=== PATIENT | male | born 1935 | race Caucasian/White ===

== ENCOUNTER 2017-09-25 09:24 | Inpatient (IN) | payer BC, OTHER ==
[2017-09-25 09:32] VITALS: BMI 27.2
[2017-09-25 10:27] LABS: BASO % 0.7 % (0-2.0); EOS % 7.8 % (0-4.5); HEMATOCRIT 37.9 % (35.4-49); HEMOGLOBIN 12.6 GM/dL (11.7-16.9); LYMPH % 15.1 % (8-40); MCH 30.2 pg (25.7-33.7); MCHC 33.3 g/dl (32.0-35.9); MEAN CELL VOLUME 90.7 fl (80-96); NEUT % 68.4 % (42.8-82.8); PLATELET COUNT 196 K/MM3 (134-434); RBC 4.18 M/mm3 (4.00-5.60); WHITE BLOOD COUNT 5.9 K/mm3 (4.0-10.0)
[2017-09-25 10:44] LABS: INR 1.09 (0.82-1.09); PROTHROMBIN TIME (PATIENT) 12.3 SEC (9.7-13.0)
[2017-09-25 10:54] LABS: ALBUMIN 3.8 g/dl (3.4-5.0); ANION GAP 6 (8-16); BLOOD UREA NITROGEN 24 mg/dL (7-18); CALCIUM 8.5 mg/dL (8.5-10.1); CHLORIDE 106 mmol/L (98-107); CO2 27 mmol/L (21-32); CREATININE 1.3 mg/dL (0.7-1.3); GLUCOSE,RANDOM 130 mg/dL (74-106); POTASSIUM 5.2 mmol/L (3.5-5.1); SGOT/AST 13 U/L (15-37); SGPT/ALT 8 U/L (12-78); SODIUM 139 mmol/L (136-145)
[2017-09-25 10:58] LABS: ALK PHOS 86 U/L (45-117); BILIRUBIN,TOTAL 1.3 mg/dL (0.2-1.0); TOT PROT 6.9 g/dl (6.4-8.2)
[2017-09-25] MEDS: DEXTROSE 5%-NORMAL SALINE 1,000 ML IV SCH (11:19)
[2017-09-25] MEDS ORDERED: ASPIRIN 81 MG CHEWABLE TABLETS PO ONE (11:39)
--- NOTE | 2017-09-25 11:50 | PDOC ---
History of Present Illness - General History Source: Patient Exam Limitations: No Limitations <Ga Araujo - Last Filed: 09/25/17 12:18> - History of Present Illness Initial Comments: 09/25/17 12:30 The patient is a 81 year old male with a significant PMH of parkinsons disease , diabetes, hypertension, and TIA presenting with difficulty moving the fingers on his left hand today. The patients is at bedside and states he was sitting on the porch yesterday while leaning to his left side. The patient woke up this morning with left hand weakness. The patient also reports an unwitnessed fall one hour prior to arrival. The patient states he was standing when he suddenly fell. The patient denies any lightheadedness, dizziness, chest pain or palpitations prior to falling. Patient denies any confusion after the event. The patient denies any pain. The patient denies chest pain, shortness of breath, headache and dizziness. Denies fever, chills, nausea, vomit, diarrhea and constipation. Denies dysuria, frequency, urgency and hematuria. Allergies: NKA Past surgical history: None reported. Social history: No reported alcohol, drug, or cigarette use. PCP: Dr. Todd <Mere Payton - Last Filed: 09/25/17 12:37> - General Chief Complaint: CVA/TIA Stated Complaint: LT ARM [id number] Time Seen by Provider: 09/25/17 10:30 Past History - Past Medical History CVA: Yes COPD: No Diabetes: Yes HTN: Yes Other medical history: parkinsons - Suicide/Smoking/Psychosocial Hx Smoking History: Former smoker Have you smoked in the past 12 months: No Information on smoking cessation initiated: No <Ga Araujo - Last Filed: 09/25/17 12:18> <Mere Payton - Last Filed: 09/25/17 12:37> - Past Medical History Allergies/Adverse Reactions: Allergies Allergy/AdvReac Type Severity Reaction Status Date / Time No Known Allergies Allergy Verified 09/25/17 09:27 Home Medications: Ambulatory Orders Atorvastatin Ca [Lipitor] 40 mg PO HS 09/25/17 Carbidopa/Levodopa [Carbidopa-Levo ER 50-200 Tab] 1 each PO TID 09/25/17 Docusate Sodium 300 mg PO HS 09/25/17 Metformin HCl [Glucophage] 500 mg PO BID 09/25/17 Metoprolol Succinate [Toprol Xl] 100 mg PO DAILY 09/25/17 Rasagiline Mesylate 0.5 mg PO DAILY 09/25/17 Tamsulosin HCl 0.4 mg PO DAILY 09/25/17 Review of Systems - Review of Systems Able to Perform ROS?: Yes Comments:: 09/25/17 12:36 ADULT ROS GENERAL/CONSTITUTIONAL: No fever or chills. No weakness. HEAD, EYES, EARS, NOSE AND THROAT: No change in vision. No ear pain or discharge. No sore throat. CARDIOVASCULAR: No chest pain or shortness of breath. RESPIRATORY: No cough, wheezing, or hemoptysis. GASTROINTESTINAL: No nausea, vomiting, diarrhea or constipation. (+) lower abdominal pain. GENITOURINARY: No dysuria, frequency, or change in urination. MUSCULOSKELETAL: No joint or muscle swelling or pain. No neck or back pain. SKIN: No rash NEUROLOGIC: (+) Difficulty moving fingers on left hand. No headache, vertigo, loss of consciousness, or change in strength/sensation. ENDOCRINE: No increased thirst. No abnormal weight change. HEMATOLOGIC/LYMPHATIC: No anemia, easy bleeding, or history of blood clots. ALLERGIC/IMMUNOLOGIC: No hives or skin allergy. <Mere Payton - Last Filed: 09/25/17 12:37> *Physical Exam - Vital Signs Last Vital Signs Temp Pulse Resp BP Pulse Ox 97.6 F 71 19 141/87 100 09/25/17 09:27 09/25/17 09:27 09/25/17 09:09/25/17 09:27 09/25/17 10:25 <Ga Araujo - Last Filed: 09/25/17 12:18> - Vital Signs Last Vital Signs Temp Pulse Resp BP Pulse Ox 97.6 F 71 19 141/87 100 09/25/17 09:27 09/25/17 09:27 09/25/17 09:27 09/25/17 09:27 09/25/17 10:25 - Physical Exam Comments: 09/25/17 12:36 ADULT EXAM GENERAL: Awake, alert, and fully oriented, in no acute distress HEAD: No signs of trauma EYES: PERRLA, EOMI, sclera anicteric, conjunctiva clear ENT: Auricles normal inspection, hearing grossly normal, nares patent, oropharynx clear without exudates. Moist mucosa NECK: Normal ROM, supple, no lymphadenopathy, JVD, or masses LUNGS: Breath sounds equal, chela ar to auscultation bilaterally. No wheezes, and no crackles HEART: Regular rate and rhythm, normal S1 and S2, no murmurs, rubs or gallops ABDOMEN: Soft, nontender, normoactive bowel sounds. No guarding, no rebound. No masses EXTREMITIES: 2+ radial pulse on the left. No edema. No clubbing or cyanosis. No cords, erythema, or tenderness NEUROLOGICAL: Sensation intact in the median, radial, and ulnar nerves. (+) Unable to extend the wrist, digits, and thumb. (+) Weakness to the radial, ulnar, and median nerves. Full sensation to the left elbow. Other extremities intact in strength and sensation. No pronator drift. Cranial nerves II through XII grossly intact. Normal speech. SKIN: Warm, Dry, normal turgor, no rashes or lesions noted. <Mere Payton - Last Filed: 09/25/17 12:37> NIH Stroke Scale - Last Known Well Date/Time & Onset Date Last Known Well: 09/24/17 - Initial Evaluation Level of consciousness: Alert Ask patient the month and their age: Answers both correctly Ask patient to open & close eyes; make fist and let go: Obeys both correctly Best gaze (horizontal eye movement): Normal Visual field testing: No visual field loss Facial paresis (Show teeth/raise eyebrows/close eyes tight): Normal symmetrical movement Motor Function: Left Arm: Normal Motor Function: Right Arm: Normal (extends arm 90 (or 45) degrees for 10 seconds without drift Motor Function: Left Leg: Normal (extends leg 30 degrees for 5 seconds without drift) Motor Function: Right Leg: Normal (extends leg 30 degrees for 5 seconds without drift) Limb Ataxia: No ataxia Sensory(Use pinprick test arms,legs,trunk,face/side to side): Normal Best language (Describe picture, name items, read sentences): No Aphasia Dysarthria (read several words): Normal articulation Extinction and Inattention: No abnormality - Total Score NIH Stroke Scale Score: 0 <Ga Araujo - Last Filed: 09/25/17 12:18> tPA Exclusion Checklist 0-3hr - Time Elapsed Date last known well: 09/25/17 - Thrombolytic Therapy Candidate Is the patient eligible for Thrombolytic Therapy?: No - Ineligibility reason(s) Reasons No tPA given: Outside of window - delayed arrival <Ga Araujo - Last Filed: 09/25/17 12:18> Heart Score/ECG Review #1 ECG reviewed & interpreted by me at: 11:15 09/25/17 12:07 NSR 65 with 1st degree AV block, left axis deviation, LVH, TWI III, avF, QTC 411 msec <Ga Araujo - Last Filed: 09/25/17 12:18> Critical Care Time/MDM Note - Medical Decision Making Note: 09/25/17 12:19 A portion of this note was documented by scribe services under my direction. I have reviewed the details of the note, within reason, and agree with the documentation with the following case summary and management plan written by me. Patient treated in the ED. Nursing notes are reviewed and incorporated into the medical decision-making. Vital signs reviewed. Peripheral IV access obtained by the nurse, laboratory studies are drawn and sent, reviewed and interpreted by myself. Vital Signs Temp Pulse Resp BP Pulse Ox 97.6 F 71 19 141/87 100 09/25/17 09:27 09/25/17 09:27 09/25/17 09:27 09/25/17 09:27 09/25/17 10:25 81-year-old male with history of Parkinson's disease, diabetes presents with left hand weakness since yesterday. The patient had fell asleep on his left side and woke up in the afternoon with weakness of the left hand. He was unable to extend his left wrist or his digits. Denies slurring of speech or dysphagia. Denies any numbness. Stated the symptoms persisted until today and was concerned for stroke so came into the ER. Denies chest pain or shortness of breath. The left wrist could certainly be Monday night palsy. However, given his history of stroke and age and history of hypertension diabetes, only to rule out stroke. CAT scan of the head demonstrates a partial lucency in the right internal capsule potentially infarction. It is of age indeterminate. Aspirin was ordered and given. Case was discussed with neurologist, Dr. Lott, who will see the patient. CBC, BMP 09/25/17 10:05 09/25/17 10:05 CMP Sodium 139 mmol/L (136-145) 09/25/17 10:05 Potassium 5.2 mmol/L (3.5-5.1) H 09/25/17 10:05 Chloride 106 mmol/L (98-107) 09/25/17 10:05 Carbon Dioxide 27 mmol/L (21-32) 09/25/17 10:05 Anion Gap 6 (8-16) L 09/25/17 10:05 BUN 24 mg/dL (7-18) H 09/25/17 10:05 Creatinine 1.3 mg/dL (0.7-1.3) 09/25/17 10:05 Creat Clearance w eGFR 53.25 (>60) 09/25/17 10:05 Random Glucose 130 mg/dL (74-106) H 09/25/17 10:05 Calcium 8.5 mg/dL (8.5-10.1) 09/25/17 10:05 Total Bilirubin 1.3 mg/dL (0.2-1.0) H 09/25/17 10:05 AST 13 U/L (15-37) L 09/25/17 10:05 ALT 8 U/L (12-78) L 09/25/17 10:05 Alkaline Phosphatase 86 U/L (45-117) 09/25/17 10:05 Creatine Kinase 139 IU/L (39-308) 09/25/17 10:05 Troponin I 0.02 ng/ml (0.00-0.05) 09/25/17 10:05 Total Protein 6.9 g/dl (6.4-8.2) 09/25/17 10:05 Albumin 3.8 g/dl (3.4-5.0) 09/25/17 10:05 Findings concerning for stroke. Case discussed with Dr. Gonzáles who accepted the patient to the stroke service. Case discussed in detail with admitting physician including history, physical exam and ancillary studies. Admitting physician has assumed care for the patient, will follow all pending diagnostics and will complete the evaluation and treatment. <Ga Araujo - Last Filed: 09/25/17 12:18> Discharge Disposition - Discharge Dispostion Decision to Admit order: Yes <Ga Araujo - Last Filed: 09/25/17 12:18> <Mere Payton - Last Filed: 09/25/17 12:37> - Diagnosis Hand weakness - Discharge Dispostion Condition at time of disposition: Stable - Referrals Referrals: Alfred Todd MD, MD [Primary Care Provider] - - Patient Instructions - Post Discharge Activity
[2017-09-25] MEDS ORDERED: ASPIRIN 81 MG CHEWABLE TABLETS ONE (12:15)
--- NOTE | 2017-09-25 15:04 | EKG ---
Test Reason : Blood Pressure : / mmHG Vent. Rate : 065 BPM Atrial Rate : 065 BPM P-R Int : 232 ms QRS Dur : 114 ms QT Int : 396 ms P-R-T Axes : 049 -37 -19 degrees QTc Int : 411 ms SINUS RHYTHM WITH 1ST DEGREE A-V BLOCK LEFT AXIS DEVIATION MINIMAL VOLTAGE CRITERIA FOR LVH, MAY BE NORMAL VARIANT ABNORMAL ECG NO PREVIOUS ECGS AVAILABLE Confirmed by CONSUELO CEE MD ([id number]) on 09/25/2017 3:03:43 PM Referred By: Confirmed By:CONSUELO CEE MD
--- NOTE | 2017-09-25 18:03 | HP ---
Admitting History and Physical - Smoking History Smoking history: Former smoker Have you smoked in the past 12 months: No Home Medications - Allergies Allergies/Adverse Reactions: Allergies Allergy/AdvReac Type Severity Reaction Status Date / Time No Known Allergies Allergy Verified 09/25/17 09:27 - Home Medications Home Medications: Ambulatory Orders Atorvastatin Ca [Lipitor] 40 mg PO HS 09/25/17 Carbidopa/Levodopa [Carbidopa-Levo ER 50-200 Tab] 1 each PO TID 09/25/17 Docusate Sodium 300 mg PO HS 09/25/17 Metformin HCl [Glucophage] 500 mg PO BID 09/25/17 Metoprolol Succinate [Toprol Xl] 100 mg PO DAILY 09/25/17 Rasagiline Mesylate 0.5 mg PO DAILY 09/25/17 Tamsulosin HCl 0.4 mg PO DAILY 09/25/17 Physical Examination Vital Signs: Vital Signs Temperature 97.5 F L 09/25/17 16:41 Pulse Rate 65 09/25/17 16:41 Respiratory Rate 18 09/25/17 16:41 Blood Pressure 100/67 09/25/17 16:41 O2 Sat by Pulse Oximetry (%) 98 09/25/17 16:41 Labs: CBC, BMP 09/25/17 10:05 09/25/17 10:05
--- NOTE | 2017-09-25 20:37 | CON.NEURO ---
Consult Consult Specialty:: Neurology Referred by:: Dr. Hui Gonzáles Reason for Consultation:: left monoparesis - History of Present Illness Chief Complaint: My left hand is weak History of Present Illness: 81 year old man with history of parkinson's disease was sitting on his porch yesterday when he noticed that his left hand was weak. It didn't improve so he ultimately came in, too late for TPA. He initially said that he was numb but upon questioning he now says that he is only weak. He told doctor earlier that he woke up this way this Am and that he fell yesterday. appears to have some memory difficulty. also history of DM and TIA. 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 Endocrine: Yes: Diabetes Mellitus - Smoking History Smoking history: Former smoker Have you smoked in the past 12 months: No Home Medications - Allergies Allergies/Adverse Reactions: Allergies Allergy/AdvReac Type Severity Reaction Status Date / Time No Known Allergies Allergy Verified 09/25/17 09:27 - Home Medications Home Medications: Ambulatory Orders Atorvastatin Ca [Lipitor] 40 mg PO HS 09/25/17 Carbidopa/Levodopa [Carbidopa-Levo ER 50-200 Tab] 1 each PO TID 09/25/17 Docusate Sodium 300 mg PO HS 09/25/17 Metformin HCl [Glucophage] 500 mg PO BID 09/25/17 Metoprolol Succinate [Toprol Xl] 100 mg PO DAILY 09/25/17 Rasagiline Mesylate 0.5 mg PO DAILY 09/25/17 Tamsulosin HCl 0.4 mg PO DAILY 09/25/17 Physical Exam-Neuro Vital Signs: Vital Signs Temperature 97.5 F L 09/25/17 16:41 Pulse Rate 65 09/25/17 16:41 Respiratory Rate 18 09/25/17 16:41 Blood Pressure 100/67 09/25/17 16:41 O2 Sat by Pulse Oximetry (%) 98 09/25/17 16:41 Labs: CBC, BMP 09/25/17 10:05 09/25/17 10:05 INR, PTT INR 1.09 (0.82-1.09) 09/25/17 10:05 NIH Stroke Scale - Initial Evaluation Level of consciousness: Alert Ask patient the month and their age: Answers both correctly Ask patient to open & close eyes; make fist and let go: Obeys both correctly Best gaze (horizontal eye movement): Normal Visual field testing: No visual field loss Facial paresis (Show teeth/raise eyebrows/close eyes tight): Normal symmetrical movement Motor Function: Left Arm: Drift Motor Function: Right Arm: Normal (extends arm 90 (or 45) degrees for 10 seconds without drift Motor Function: Left Leg: Normal (extends leg 30 degrees for 5 seconds without drift) Motor Function: Right Leg: Normal (extends leg 30 degrees for 5 seconds without drift) Limb Ataxia: No ataxia Sensory(Use pinprick test arms,legs,trunk,face/side to side): Normal Best language (Describe picture, name items, read sentences): No Aphasia Dysarthria (read several words): Normal articulation Extinction and Inattention: No abnormality (only abnormality is in left hand where he cannot fully extend fingers.) - Total Score NIH Stroke Scale Score: 1 Imaging - Results Cat Scan: Report Reviewed, Image Reviewed (possible right thalamocapsular lacune.) Problem List - Problems (1) Hand weakness Code(s): R29.898 - [facility] SYMPTOMS AND SIGNS INVOLVING THE MUSCULOSKELETAL SYSTEM Assessment/Plan R/O stroke, would benefit from MRI brain. Will get MRI brain, carotid dopplers, echo and recommend telemetry. Continue lipitor and asa 81 mg.
--- NOTE | 2017-09-25 21:26 | HP ---
Admitting History and Physical - Primary Care Physician PCP: Alfred Todd MD - Admission Chief Complaint: Left Hand weakness/numbness History of Present Illness: This is a81 y/o man with a significant PMH of Parkinsons Disease, Diabetes, Hypertension, TIA. Who presents to the ED with difficulty moving the fingers on his left hand today. The patient reports that he was sitting on the porch yesterday while leaning to his left side. The patient woke up this morning with left hand weakness. The patient also reports an unwitnessed fall one hour prior to arrival. The patient states he was standing when he suddenly fell. The patient denies any lightheadedness, dizziness, chest pain or palpitations prior to falling. Patient denies any confusion after the event. The patient denies fever, chills, cough, dizziness, MARTIN, SOB CP, palpitations, AP, N/V/D, constipation, hematura, dysuria. 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 Endocrine: Yes: Diabetes Mellitus - Smoking History Smoking history: Former smoker Have you smoked in the past 12 months: No - Alcohol/Substance Use Hx Alcohol Use: No History of Substance Use: reports: None - Social History Usual Living Arrangement: Yes: With Spouse ADL: Family Assistance History of Recent Travel: No Home Medications - Allergies Allergies/Adverse Reactions: Allergies Allergy/AdvReac Type Severity Reaction Status Date / Time No Known Allergies Allergy Verified 09/25/17 09:27 - Home Medications Home Medications: Ambulatory Orders Atorvastatin Ca [Lipitor] 40 mg PO HS 09/25/17 Carbidopa/Levodopa [Carbidopa-Levo ER 50-200 Tab] 1 each PO TID 09/25/17 Docusate Sodium 300 mg PO HS 09/25/17 Metformin HCl [Glucophage] 500 mg PO BID 09/25/17 Metoprolol Succinate [Toprol Xl] 100 mg PO DAILY 09/25/17 Rasagiline Mesylate 0.5 mg PO DAILY 09/25/17 Tamsulosin HCl 0.4 mg PO DAILY 09/25/17 Family Disease History - Family Disease History Family History: Unable to Obtain Review of Systems - Review of Systems Constitutional: reports: Weakness Eyes: reports: No Symptoms HENT: reports: No Symptoms Neck: reports: No Symptoms Cardiovascular: reports: No Symptoms Respiratory: reports: No Symptoms Gastrointestinal: reports: No Symptoms Genitourinary: reports: No Symptoms Breasts: reports: No Symptoms Reported Integumentary: reports: No Symptoms Neurological: reports: Numbness, Weakness Endocrine: reports: No Symptoms Hematology/Lymphatic: reports: No Symptoms Psychiatric: reports: No Symptoms Physical Examination Vital Signs: Vital Signs Temperature 97.5 F L 09/25/17 16:41 Pulse Rate 65 09/25/17 16:41 Respiratory Rate 18 09/25/17 16:41 Blood Pressure 100/67 09/25/17 16:41 O2 Sat by Pulse Oximetry (%) 98 09/25/17 16:41 Constitutional: Yes: Well Nourished, No Distress, Calm Eyes: Yes: WNL, Conjunctiva Clear, EOM Intact, PERRL HENT: Yes: WNL, Atraumatic, Normocephalic Neck: Yes: WNL, Supple, Trachea Midline Cardiovascular: Yes: WNL, Regular Rate and Rhythm, S1, S2, Other (PVD to BLE) Respiratory: Yes: WNL, Regular, CTA Bilaterally Gastrointestinal: Yes: WNL, Normal Bowel Sounds, Soft ...Rectal Exam: Yes: Deferred Renal/: Yes: WNL Breast(s): Yes: WNL Musculoskeletal: Yes: WNL Extremities: Yes: Other (spastic limbs) Edema: No Peripheral Pulses WNL: Yes Integumentary: Yes: Venous Stasis Changes (BL LE) Wound/Incision: Yes: Dressing Dry and Intact Neurological: Yes: Alert, Numbness (L- hand), Weakness (L- hand) ...Motor Strength: LUE (4/5), LLE (4/5), RUE (5/5), RLE (5/5) Psychiatric: Yes: WNL, Alert, Oriented Labs: CBC, BMP 09/25/17 10:05 09/25/17 10:05 Laboratory Results - last 24 hr 09/25/17 09/25/17 09/25/17 10:05 10:05 10:05 WBC 5.9 RBC 4.18 Hgb 12.6 Hct 37.9 MCV 90.7 MCH 30.2 MCHC 33.3 RDW 14.0 Plt Count 196 MPV 8.0 Absolute Neuts (auto) 4.0 Neutrophils % 68.4 Lymphocytes % 15.1 Monocytes % 8.0 Eosinophils % 7.8 H Basophils % 0.7 Nucleated RBC % 0 PT with INR 12.30 INR 1.09 Sodium 139 Potassium 5.2 H Chloride 106 Carbon Dioxide 27 Anion Gap 6 L BUN 24 H Creatinine 1.3 Creat Clearance w eGFR 53.25 Random Glucose 130 H Calcium 8.5 Total Bilirubin 1.3 H AST 13 L ALT 8 L Alkaline Phosphatase 86 Creatine Kinase 139 Troponin I 0.02 Total Protein 6.9 Albumin 3.8 Imaging - Results Chest X-ray: Report Reviewed, Image Reviewed Cat Scan: Report Reviewed, Image Reviewed EKG: Image Reviewed (NSR 65 with 1st degree AV block, left axis deviation, LVH, TWI III, avF, QTC 411 msec) Problem List - Problems (1) TIA (transient ischemic attack) Code(s): G45.9 - TRANSIENT CEREBRAL ISCHEMIC ATTACK, UNSPECIFIED (2) Diabetes mellitus Code(s): E11.9 - TYPE 2 DIABETES MELLITUS WITHOUT COMPLICATIONS (3) Acute CVA (cerebrovascular accident) Code(s): I63.9 - CEREBRAL INFARCTION, UNSPECIFIED (4) Hand weakness Code(s): R29.898 - OT SYMPTOMS AND SIGNS INVOLVING THE MUSCULOSKELETAL SYSTEM Assessment/Plan 81 y/o man PMHx DM, TIA. Admitted to Telemetry for Acute Stroke for further evaluation of their emergent condition. Plan: Acute Stroke - Cardiac Monitoring - NIHSS Score 0 - CT Brain-reviewed - Neurology following - Brain MRI - Echo - Carotid Doppler - Neuro checks - Swallow eval - Lipid profile in am - Serial enzymes - Fall precautions - CBC, BMP in am - Asa given in ED will continue - NPO Diabetes Mellitus - Stable - BGMs - ISS when diet resumed - Monitor renal function FEN -D5NS@75ml/hr -Replete lytes prn - NPO until cleared by Primary team/ Neuro DVT ppx - OOB - SCDs - Hold AC until MRI brain results- concerned for ICH Code Status: Full Code Dispo: Requires Inpatient Care Visit type - Emergency Visit Emergency Visit: Yes ED Registration Date: 09/25/17 Care time: The patient presented to the Emergency Department on the above date and was hospitalized for further evaluation of their emergent condition. - New Patient This patient is new to me today: Yes Date on this admission: 09/25/17 - Critical Care Critical Care patient: No Hospitalist Screening - Colonoscopy Questionnaire Colonoscopy Questionnaire: Colonoscopy Questionnaire - Patient: 50 - 75 years old and never had a screening colonoscopy: Unknown History of colon or rectal polyps, or CA: Unknown History of IBD, Crohn's disease or UC: Unknown History of abdominal radiation therapy as a child: Unknown - Relative: 1 with colon or rectal CA, or polyps at age 60 or younger: Unknown Colon or rectal CA diagnosed at age 45 or younger: Unknown Multiple relatives with colon or rectal CA: Unknown - Outcome: Screening Result: Negative Screen
[2017-09-25] MEDS: ATORVASTATIN CA 20 MG TABLET (FP) PO SCH (23:00)
[2017-09-25] MEDS: INSULIN SLIDING SCALE (NOVOLOG) 1 VIAL SQ SCH (23:00)
[2017-09-26] MEDS ORDERED: ATORVASTATIN CA 40 MG TABLET (FP) ONE (01:38)
[2017-09-26] MEDS ORDERED: INSULIN (NOVOLOG) ASPART 100 UNITS/ML 10ML VIAL ONE (01:39)
[2017-09-26 07:06] LABS: HEMATOCRIT 40.2 % (35.4-49); HEMOGLOBIN 13.6 GM/dL (11.7-16.9); MCH 30.7 pg (25.7-33.7); MCHC 33.8 g/dl (32.0-35.9); MEAN CELL VOLUME 90.8 fl (80-96); MEAN PLT VOLUME 7.9 fl (7.5-11.1); PLATELET COUNT 210 K/MM3 (134-434); RBC 4.43 M/mm3 (4.00-5.60); RDW 13.8 % (11.9-15.9); WHITE BLOOD COUNT 7.3 K/mm3 (4.0-10.0)
[2017-09-26] MEDS: INSULIN SLIDING SCALE (NOVOLOG) 1 VIAL SQ SCH ×4 (07:25→22:31)
[2017-09-26 08:30] LABS: ALBUMIN 4.1 g/dl (3.4-5.0); ANION GAP 8 (8-16); BILIRUBIN,TOTAL 1.2 mg/dL (0.2-1.0); BLOOD UREA NITROGEN 23 mg/dL (7-18); CALCIUM 8.9 mg/dL (8.5-10.1); CHLORIDE 108 mmol/L (98-107); CO2 25 mmol/L (21-32); CREATININE 1.3 mg/dL (0.7-1.3); GLUCOSE,RANDOM 88 mg/dL (74-106); POTASSIUM 4.5 mmol/L (3.5-5.1); SGOT/AST 18 U/L (15-37); SGPT/ALT 12 U/L (12-78); SODIUM 141 mmol/L (136-145); TOT PROT 7.2 g/dl (6.4-8.2); TRIGLYCERIDES 104 mg/dL (35-160)
[2017-09-26 08:31] LABS: ALK PHOS 94 U/L (45-117); CHOLESTEROL 119 mg/dL (50-200); HDL CHOLESTEROL 56 mg/dL (40-60)
--- NOTE | 2017-09-26 08:36 | PN ---
Progress Note, Physician History of Present Illness: weakness of arm and unsteady intermittent confusion - Current Medication List Current Medications: Active Medications Atorvastatin Calcium (Lipitor -) 20 mg PO HS JOHN PAUL Last Admin: 09/25/17 23:00 Dose: 20 mg Dextrose/Sodium Chloride (D5-Ns -) 1,000 mls @ 75 mls/hr IV ASDIR JOHN PAUL Last Admin: 09/25/17 11:19 Dose: 75 mls/hr Insulin Aspart (Novolog Vial Sliding Scale -) 1 vial SQ ACHS [facility]; Protocol Last Admin: 09/26/17 07:25 Dose: Not Given - Objective Vital Signs: Vital Signs Temperature 97.5 F L 09/25/17 16:41 Pulse Rate 65 09/25/17 16:41 Respiratory Rate 18 09/25/17 16:41 Blood Pressure 100/67 09/25/17 16:41 O2 Sat by Pulse Oximetry (%) 98 09/25/17 16:41 Cardiovascular: Yes: Murmur, S1, S2 Respiratory: Yes: Regular, CTA Bilaterally Gastrointestinal: Yes: Normal Bowel Sounds, Soft Neurological: Yes: Alert, Confusion, Unsteady Gait, Weakness, Other (left arm weakness) Labs: CBC, BMP 09/26/17 06:52 INR, PTT INR 1.09 (0.82-1.09) 09/25/17 10:05 Problem List - Problems (1) Acute CVA (cerebrovascular accident) Assessment/Plan: - Cardiac Monitoring - CT Brain-reviewed - Neurology following - Brain MRI - Echo - Carotid Doppler - Neuro checks - Swallow eval - Lipid profile - Serial enzymes - Fall precautions - CBC, BMP in am - Asa - NPO Code(s): I63.9 - CEREBRAL INFARCTION, UNSPECIFIED (2) Diabetes mellitus Assessment/Plan: - Stable - BGMs - ISS when diet resumed - Monitor renal function Code(s): E11.9 - TYPE 2 DIABETES MELLITUS WITHOUT COMPLICATIONS
--- NOTE | 2017-09-26 10:51 | CON.CARD ---
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 Endocrine: Yes: Diabetes Mellitus - Alcohol/Substance Use Hx Alcohol Use: No History of Substance Use: reports: None - Smoking History Smoking history: Former smoker Have you smoked in the past 12 months: No - Social History ADL: Family Assistance History of Recent Travel: No Home Medications - Allergies Allergies/Adverse Reactions: Allergies Allergy/AdvReac Type Severity Reaction Status Date / Time No Known Allergies Allergy Verified 09/25/17 09:27 - Home Medications Home Medications: Ambulatory Orders Atorvastatin Ca [Lipitor] 40 mg PO HS 09/25/17 Carbidopa/Levodopa [Carbidopa-Levo ER 50-200 Tab] 1 each PO TID 09/25/17 Docusate Sodium 300 mg PO HS 09/25/17 Metformin HCl [Glucophage] 500 mg PO BID 09/25/17 Metoprolol Succinate [Toprol Xl] 100 mg PO DAILY 09/25/17 Rasagiline Mesylate 0.5 mg PO DAILY 09/25/17 Tamsulosin HCl 0.4 mg PO DAILY 09/25/17 Vital Signs: Vital Signs Temperature 97.8 F 09/26/17 09:00 Pulse Rate 70 09/26/17 09:00 Respiratory Rate 16 09/26/17 09:00 Blood Pressure 160/88 09/26/17 09:00 O2 Sat by Pulse Oximetry (%) 97 09/26/17 09:00 - Other Data Labs, Other Data: CBC, BMP 09/26/17 06:52 09/26/17 06:52 INR, PTT INR 1.09 (0.82-1.09) 09/25/17 10:05 Troponin, BNP 09/25/17 10:05 Troponin I 0.02 Troponin, BNP 09/25/17 10:05 Troponin I 0.02
--- NOTE | 2017-09-26 10:54 | CONSULT ---
Admitting History and Physical - Primary Care Physician PCP: Jhoan Vital - Admission History of Present Illness: Chief Complaint: Left Hand weakness/numbness History of Present Illness: This is a81 y/o man with a significant PMH of Parkinsons Disease, Diabetes, Hypertension, TIA. Who presents to the ED with difficulty moving the fingers on his left hand today. The patient reports that he was sitting on the porch yesterday while leaning to his left side. The patient woke up this morning with left hand weakness. The patient also reports an unwitnessed fall one hour prior to arrival. The patient states he was standing when he suddenly fell. The patient denies any lightheadedness, dizziness, chest pain or palpitations prior to falling. Patient denies any confusion after the event. The patient denies fever, chills, cough, dizziness, MARTIN, SOB CP, palpitations, AP, N/V/D, constipation, hematura, dysuria. Pt disoriented x 3, thinks he is in a school, does not know if i9t's winter or summer. Pt's did not know if this was pt's baseline. She does say that his speech is at baseline, but that his speech is unclear because his teeth are out. History Source: Family Member, Medical Record Limitations to Obtaining History: Clinical Condition - Past Medical History FAMILY PSYCHOLOGIST: Yes: Parkinson's, TIA Endocrine: Yes: Diabetes Mellitus - Smoking History Smoking history: Former smoker Have you smoked in the past 12 months: No - Alcohol/Substance Use Hx Alcohol Use: No History of Substance Use: reports: None - Social History ADL: Family Assistance History of Recent Travel: No History - Admission Reason For Visit: WEAKNESS OF HAND - Diagnostics X-ray: Report Reviewed CT Scan: Report Reviewed MRI: Pending - General Mental Status: Awake and Alert, Able to Follow Commands, Forgetful, Vague, Confused, Flat Affect Attention: Intact Ability to Follow Directions: Fair Head/Neck Control: Fair - Hearing Hearing: Functional Speech Evaluation - Communication Primary Language: INDONESIAN Communication: Yes: Dysarthria Oral Expression Ability: Yes: Mild Impairment - Speech Production Dysarthria: Yes: Hypokinetic (if baseline, per pt's .) Able to Make Needs Known: Yes: Mildly Impaired Intelligibility: Yes: Mildly Impaired - Speech Characteristics Voice Loudness: Normal, Limited Variation Voice Pitch: Yes: Normal Voice Phonatory-based Quality: Yes: Normal Speech Pattern: Normal Speech Clarity: < 100% Nasal Resonance: Normal Articulation: Yes: Imprecise Rate of Speech: Too Fast - Language/Auditory Comprehension Follows: Yes: 1 Stage Simple Commands - Language/Verbal Expression Able to Communicate Wants and Needs: Yes: WNL Functional Communication Status: Yes: WNL - Swallow Evaluation/Bedside Assessment Current Nutritional Intake: NPO Oral Secretions: Yes: WFL Dentition: Yes: Adequate Facial Symmetry at Rest: Facial Droop Left (slight? at rest) Facial Symmetry on Retraction: Symmetrical Facial Movement: Controlled Against Resistance Opening: Weak Against Resistance Closing: Weak Pucker Lips: Reduced ROM Smile: Reduced ROM (flat affect c/w PD) Lingual Movement: Symmetric Lingual Speed of Movement: Normal Lingual Movement Strgth Against Opposition: Reduced Velopharyngeal Movement: Normal Laryngeal Elevation: WFL Laryngeal Movement: Able to Palpate Rate of Intake: WFL Bolus Size: WFL Labial Seal: WFL Chewing: WFL Oral Prep Time: WFL A-P Transit: WFL Timing of Swallow: WFL Coughing/Throat Clear: No Change in Voice: No Recommendations - Speech Evaluation, Impression/Plan Impression: Mild Dysarthria (hypokenetic, if baseline?). Disoriented, baseline? Swallowing overtly intact. Dropping items with left hand. - Dysphagia Impressions/Plan Swallowing Skills: WF Dysphagia Impressions: No Impairment, Ongoing Evaluation *Silent aspiration: cannot be R/O at bedside Recommendations: Modified Barium Swallow (if cough, congestion,fever) - Recommendations Diet Consistency: Regular Medication Administration: Whole with water Liquids: Thin Liquids
--- NOTE | 2017-09-26 11:09 | CON.CARD ---
Consult Consult Specialty:: Cardiology Referred by:: Dr. Gonzáles Reason for Consultation:: CVA - History of Present Illness Chief Complaint: L hand weakness History of Present Illness: 81 year old man with pmh parkinsons disease, HTN, DMII, recent ocular TIA, admitted with weakness L hand. Pt seen and examined in the ER in nad. Pt states that he fell asleep on his left side as he often does due to his parkinsons and when he woke up his left hand was weak. He also notes a mechanical fall prior to coming to ER. He denies any palpitations, lightheadedness, dizziness, syncope , or near syncope. No pnd, orthopnea, or LE edema. No chest pain or sob. 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 Endocrine: Yes: Diabetes Mellitus - Alcohol/Substance Use Hx Alcohol Use: No History of Substance Use: reports: None - Smoking History Smoking history: Former smoker Have you smoked in the past 12 months: No - Social History ADL: Family Assistance History of Recent Travel: No Home Medications - Allergies Allergies/Adverse Reactions: Allergies Allergy/AdvReac Type Severity Reaction Status Date / Time No Known Allergies Allergy Verified 09/25/17 09:27 - Home Medications Home Medications: Ambulatory Orders Atorvastatin Ca [Lipitor] 40 mg PO HS 09/25/17 Carbidopa/Levodopa [Carbidopa-Levo ER 50-200 Tab] 1 each PO TID 09/25/17 Docusate Sodium 300 mg PO HS 09/25/17 Metformin HCl [Glucophage] 500 mg PO BID 09/25/17 Metoprolol Succinate [Toprol Xl] 100 mg PO DAILY 09/25/17 Rasagiline Mesylate 0.5 mg PO DAILY 09/25/17 Tamsulosin HCl 0.4 mg PO DAILY 09/25/17 Family Disease History - Family Disease History Family History: Denies Review of Systems - Review of Systems Constitutional: reports: Weakness. denies: No Symptoms, Chills, Diaphoresis, Fever, Lethargy, Loss of Appetite, Malaise, Night Sweats, Unintentional Wgt. Loss, Other Eyes: denies: No Symptoms, Blind Spots, Blurred Vision, Double Vision, Eye Pain , Floaters, Photophobia, Recent Change in Vision, Other HENT: denies: No Symptoms, Difficult Swallowing, Ear Discharge, Ear Pain, Epistaxis, Gingival Bleeding, Hearing Loss, Mouth Swelling, Nasal Congestion, Ocular Prosthesis, Throat Pain, Toothache, Ringing in Ears, Other Neck: denies: No Symptoms, Decreased ROM, Lumps, Pain on Movement, Stiffness, Swollen Glands, Tenderness, Other Cardiovascular: denies: No Symptoms, Chest Pain, Edema, Palpitations, Shortness of Breath, Other Respiratory: denies: No Symptoms, Cough, Exercise Intolerance, Hemoptysis, Orthopnea, PND, Snoring, SOB, SOB on Exertion, Wheezing, Other Gastrointestinal: denies: No Symptoms, Abdominal Pain, Bloating, Constipation, Diarrhea, Dysphagia, Indigestion, Melena, Nausea, Rectal Bleeding, Vomiting, Vomiting Blood, Other Genitourinary: denies: No Symptoms, Burning, Discharge, Dysuria, Flank Pain, Frequency, Hematuria, Incontinence, Lesions, Menses, Pain, Testicular Mass, Testicular Pain, Testicular Swelling, Urgency, Vaginal Bleeding, Other Breasts: denies: No Symptoms Reported, See HPI, Breast Implants, Discharge from Nipple, Lumps, Pain, Skin Changes, Other Musculoskeletal: reports: Muscle Weakness. denies: No Symptoms, Back Pain, Crepitus, Decreased ROM, Extremity Pain, Joint Pain, Joint Swelling, Muscle Pain , Muscle Cramps, Other Integumentary: denies: No Symptoms, Blister, Bruising, Change in Color, Eczema, Erythema, Incision, Lesions, Lump, Pallor, Pruritis, Rash, Wound, Other Neurological: reports: Incoordination, Pre-Existing Deficit, Weakness. denies: No Symptoms, Change in LOC, Change in Speech, Confusion, Dizziness, Headache, Numbness, Parasthesia, Seizure, Syncope, Tremors, Unsteady Gait, Other Endocrine: denies: No Symptoms, Excessive Sweating, Flushing, Increased Hunger, Increased Thirst, Intolerance to Cold, Intolerance to Heat, Unexplained Weight Gain, Unexplained Weight Loss, Other Hematology/Lymphatic: denies: No Symptoms, Easily Bruised, Excessive Bleeding, Swollen Glands, Other Psychiatric: denies: No Symptoms, Altered Sleep Pattern, Anxiety, Depression, Hallucinations, Panic, Paranoia, Suicidal, Other - Risk Factors Known Risk Factors: Yes: Diabetes Mellitus Vital Signs: Vital Signs Temperature 97.8 F 09/26/17 09:00 Pulse Rate 70 09/26/17 09:00 Respiratory Rate 16 09/26/17 09:00 Blood Pressure 160/88 09/26/17 09:00 O2 Sat by Pulse Oximetry (%) 97 09/26/17 09:00 Constitutional: Yes: Well Nourished, No Distress, Calm Eyes: Yes: WNL, Conjunctiva Clear, EOM Intact HENT: Yes: WNL, Atraumatic, Normocephalic Neck: Yes: WNL, Supple, Trachea Midline Respiratory: Yes: WNL, Regular, CTA Bilaterally. No: Rales, Rhonchi, Wheezes Gastrointestinal: Yes: WNL, Normal Bowel Sounds, Soft. No: Distention, Tenderness Renal/: Yes: WNL Cardiovascular: Yes: Regular Rate and Rhythm. No: Bradycardia, Tachycardia, Pulse Irregular, Gallop, Rub, Varicosities JVD: No Carotid Bruit: No PMI: Non-Displaced Heart Sounds: Yes: S1, S2. No: Split S2, S3, S4, Clicks, Gallop, Rub, Bruit Murmur: Yes: Systolic Murmur, Grade 2. No: Diastolic Murmur Musculoskeletal: Yes: Muscle Weakness Extremities: Yes: WNL Edema: No Peripheral Pulses WNL: Yes Peripheral Pulses: 2+ Left Doralis Pedis, 2+ Right Dorsalis Pedis Integumentary: Yes: WNL Neurological: Yes: Alert, Oriented, Weakness Psychiatric: Yes: Alert, Oriented - Other Data Labs, Other Data: CBC, BMP 09/26/17 06:52 09/26/17 06:52 INR, PTT INR 1.09 (0.82-1.09) 09/25/17 10:05 EKG-NSR 65bpm, 1st AVB, LAD, LVH, nonspecific St abnl Echo: Pending Imaging - Results Chest X-ray: Report Reviewed, Image Reviewed EKG: Report Reviewed, Image Reviewed Other: Report Reviewed, Image Reviewed Assessment/Plan 81 year old man with pmh parkinsons disease, HTN, DMII, recent ocular TIA, admitted with weakness L hand. Pt seen and examined in the ER in nad. Pt states that he fell asleep on his left side as he often does due to his parkinsons and when he woke up his left hand was weak. He also notes a mechanical fall prior to coming to ER. He denies any palpitations, lightheadedness, dizziness, syncope , or near syncope. No pnd, orthopnea, or LE edema. No chest pain or sob. L hand weakness, possible CVA, recent ocular TIA -neuro work up in progress, MRI planned -pt reports recent echo after recent TIA and states it was normal, done at [facility] -denies any cardiac history, no arrhythmias, has not had an outpatient holter monitor -EKG NSR here -denies any palpitations -receiving ASA and Lipitor -on Metoprolol, need to clarify indication (presume was being used for HTN not for arrhythmia) -monitor tele during admission, if no arrhythmias identified during admission would recc close outpatient fup with plan for longer term event monitor to evaluate for occult arrhythmia -fup echo done this am. -HTN goals as per Neuro reccs
--- NOTE | 2017-09-26 11:24 | PN ---
Progress Note, Physician Chief Complaint: left hand weakness History of Present Illness: F/U no change in his complaints though his says that his hand is stronger than yesterday. 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 81 year old man with history of parkinson's disease was sitting on his porch yesterday when he noticed that his left hand was weak. It didn't improve so he ultimately came in, too late for TPA. He initially said that he was numb but upon questioning he now says that he is only weak. He told doctor earlier that he woke up this way this Am and that he fell yesterday. appears to have some memory difficulty. also history of DM and TIA. - Current Medication List Current Medications: Active Medications Aspirin (Ecotrin -) 325 mg PO DAILY [facility] Atorvastatin Calcium (Lipitor -) 20 mg PO HS [facility] Last Admin: 09/25/17 23:00 Dose: 20 mg Carbidopa/Levodopa (Sinemet *Cr* 50/200 -) 1 combo PO TID [facility] Docusate Sodium (Colace -) 300 mg PO HS [facility] Dextrose/Sodium Chloride (D5-Ns -) 1,000 mls @ 75 mls/hr IV ASDIR [facility] Last Admin: 09/25/17 11:19 Dose: 75 mls/hr Insulin Aspart (Novolog Vial Sliding Scale -) 1 vial SQ [facility]; Protocol Last Admin: 09/26/17 07:25 Dose: Not Given Metoprolol Succinate (Toprol Xl -) 100 mg PO DAILY [facility] Rasagiline (Azilect -) 0.5 mg PO DAILY [facility] Tamsulosin HCl (Flomax -) 0.4 mg PO DAILY@0830 [facility] - Objective Vital Signs: Vital Signs Temperature 97.8 F 09/26/17 09:00 Pulse Rate 70 09/26/17 09:00 Respiratory Rate 16 09/26/17 09:00 Blood Pressure 160/88 09/26/17 09:00 O2 Sat by Pulse Oximetry (%) 97 09/26/17 09:00 Neurological: Yes: Cran Nerves II-XII Intact (except for mild reduced left nasolabial fold (I didn't notice this yesterday)) Labs: CBC, BMP 09/26/17 06:52 09/26/17 06:52 INR, PTT INR 1.09 (0.82-1.09) 09/25/17 10:05 Problem List - Problems (1) Hand weakness Code(s): R29.898 - OTH SYMPTOMS AND SIGNS INVOLVING THE MUSCULOSKELETAL SYSTEM (2) Acute CVA (cerebrovascular accident) Code(s): I63.9 - CEREBRAL INFARCTION, UNSPECIFIED (3) Diabetes mellitus Code(s): E11.9 - TYPE 2 DIABETES MELLITUS WITHOUT COMPLICATIONS Assessment/Plan Stroke, would benefit from MRI brain. Will get MRI brain, carotid dopplers, echo and recommend telemetry. Continue lipitor and asa 81 mg. He apparently always moves too much so will likely need sedation for his mri. Given the facial weakness and the reduced tremor on the left compared to the right I am more convinced that his deficit is central (a stroke) rather than peripheral ( palsy).
[2017-09-26] MEDS: ASPIRIN 325 MG ENTERIC COATED TABLET (FP) PO SCH (11:31)
[2017-09-26] MEDS: TAMSULOSIN HCL 0.4 MG CAP.ER.24H (FP) PO SCH (11:31)
[2017-09-26] MEDS: RASAGILINE MESYLATE 1 MG TABLET PO SCH (14:27)
[2017-09-26] MEDS: DEXTROSE 5%-NORMAL SALINE 1,000 ML IV SCH (17:14)
--- NOTE | 2017-09-26 17:28 | ECHO ---
Name: POHORENCE, KEYANA Exam:Adult Echocardiogram Study Date: 09/26/2017 08:36 AM Reason For Study: CVA TIA Height: 70 in Weight: 190 lb BSA: 2.0 m2 MMode/2D Measurements & Calculations IVSd: 0.92 cm Ao root diam: 3.1 cm EDV(Teich): 88.1 ml LVIDd: 4.4 cm LA dimension: 3.1 cm LVPWd: 0.77 cm Ao root area: 7.7 cm2 LVOT diam: 2.4 cm LVOT area: 4.4 cm2 Doppler Measurements & Calculations MV E max sarai: 45.9 cm/sec Ao V2 max: 217.2 cm/sec LV V1 max P.5 mmHg MV A max sarai: 92.8 cm/sec Ao max P.9 mmHg LV V1 mean P.2 mmHg MV E/A: 0.49 Ao V2 mean: 152.1 cm/sec LV V1 max: 79.7 cm/sec Ao mean P.4 mmHg LV V1 mean: 48.6 cm/sec Ao V2 VTI: 45.5 cm LV V1 VTI: 14.0 cm ТАТЬЯНА(I,D): 1.4 cm2 ТАТЬЯНА(V,D): 1.6 cm2 MR max sarai: 213.1 cm/sec SV(LVOT): 61.7 ml TR max sarai: 199.8 cm/sec MR max P.2 mmHg TR max P.1 mmHg PI end-d sarai: 159.5 cm/sec Lat E/e': 7.4 Med E/e': 13.9 Procedure A complete two-dimensional transthoracic echocardiogram was performed (2D, M-mode, Doppler and color flow Doppler). Left Ventricle The left ventricular size, thickness and function are normal. Ejection Fraction = 55%. Grade I diasto lic dysfunction, (abnormal relaxation pattern). Right Ventricle The right ventricle is normal in size and function. Atria The left atrial size is normal. Right atrial size is normal. The atrial septum is aneurysmal. Mitral Valve There is mild mitral valve thickening. There is mild mitral annular calcification. There is trace elvis ral regurgitation. Tricuspid Valve The tricuspid valve is not well visualized, but is grossly normal. There is mild tricuspid regurgitat ion. Right ventricular systolic pressure is normal. Aortic Valve There is mild to moderate aortic valve thickening. There is moderate aortic sclerosis.;. Mild valvula r aortic stenosis. Pulmonic Valve The pulmonic valve is not well visualized. Great Vessels The aortic root is normal size. Pericardium/Pleura There is no pericardial effusion. Interpretation Summary The left ventricular size, thickness and function are normal Grade I diastolic dysfunction, (abnormal relaxation pattern). The left atrial size is normal. The atrial septum is aneurysmal. There is trace mitral regurgitation. There is mild tricuspid regurgitation. Mild valvular aortic stenosis. There is no pericardial effusion. MD Hira Sparrow 09/26/2017 05:28 PM
[2017-09-26] MEDS: ATORVASTATIN CA 20 MG TABLET (FP) PO SCH (22:30)
[2017-09-26] MEDS: DOCUSATE SODIUM 100 MG CAPSULE (FP) PO SCH (22:30)
[2017-09-27] MEDS: INSULIN SLIDING SCALE (NOVOLOG) 1 VIAL SQ SCH ×4 (06:26→23:06)
--- NOTE | 2017-09-27 07:27 | PN ---
Progress Note, Physician - Current Medication List Current Medications: Active Medications Aspirin (Ecotrin -) 325 mg PO DAILY [facility] Last Admin: 09/26/17 11:31 Dose: 325 mg Atorvastatin Calcium (Lipitor -) 20 mg PO HS [facility] Last Admin: 09/26/17 22:30 Dose: 20 mg Carbidopa/Levodopa (Sinemet *Cr* 50/200 -) 1 combo PO TID [facility] Last Admin: 09/27/17 05:27 Dose: 1 combo Docusate Sodium (Colace -) 300 mg PO HS [facility] Last Admin: 09/26/17 22:30 Dose: 300 mg Dextrose/Sodium Chloride (D5-Ns -) 1,000 mls @ 75 mls/hr IV ASDIR [facility] Last Admin: 09/26/17 17:14 Dose: 75 mls/hr Insulin Aspart (Novolog Vial Sliding Scale -) 1 vial SQ [facility]; Protocol Last Admin: 09/27/17 06:26 Dose: Not Given Metoprolol Succinate (Toprol Xl -) 100 mg PO DAILY [facility] Last Admin: 09/26/17 11:30 Dose: 100 mg Rasagiline (Azilect -) 0.5 mg PO DAILY [facility] Last Admin: 09/26/17 14:27 Dose: 0.5 mg Tamsulosin HCl (Flomax -) 0.4 mg PO DAILY@0830 [facility] Last Admin: 09/26/17 11:31 Dose: 0.4 mg - Objective Vital Signs: Vital Signs Temperature 98.0 F 09/27/17 06:00 Pulse Rate 72 09/27/17 06:00 Respiratory Rate 18 09/27/17 06:00 Blood Pressure 145/92 09/27/17 06:00 O2 Sat by Pulse Oximetry (%) 97 09/26/17 20:20 Cardiovascular: Yes: S1, S2 Respiratory: Yes: Regular, CTA Bilaterally Gastrointestinal: Yes: Normal Bowel Sounds, Soft Edema: No Neurological: Yes: Alert, Weakness, Other (wrist drop? on left) Labs: CBC, BMP 09/26/17 06:52 09/26/17 06:52 INR, PTT INR 1.09 (0.82-1.09) 09/25/17 10:05 Problem List - Problems (1) Acute CVA (cerebrovascular accident) Assessment/Plan: - Cardiac Monitoring - CT Brain-reviewed - Neurology following - Brain MRI done --results pending - Echo - Carotid Doppler noted--no sig stenosis - Neuro checks - Swallow eval - Lipid profile - Serial enzymes - Fall precautions - CBC, BMP in am - Asa - PT--EMG Code(s): I63.9 - CEREBRAL INFARCTION, UNSPECIFIED (2) Diabetes mellitus Assessment/Plan: - Stable - BGMs - ISS when diet resumed - Monitor renal function Code(s): E11.9 - TYPE 2 DIABETES MELLITUS WITHOUT COMPLICATIONS (3) Wrist drop, left Assessment/Plan: -Pt -neuro -emg Code(s): M21.332 - WRIST DROP, LEFT WRIST
[2017-09-27] MEDS ORDERED: PT OWN MED DRAWER 7, Y5N ONE (08:39)
[2017-09-27] MEDS: TAMSULOSIN HCL 0.4 MG CAP.ER.24H (FP) PO SCH (08:49)
[2017-09-27] MEDS: RASAGILINE MESYLATE 1 MG TABLET PO SCH (09:00)
[2017-09-27] MEDS: ASPIRIN 325 MG ENTERIC COATED TABLET (FP) PO SCH (09:01)
--- NOTE | 2017-09-27 11:17 | PN ---
Progress Note, REHABILITATION THERAPIST - Note Progress Note: MRI (-) stroke More oriented. Mild dysarthria, likely sec to PD. Pt reports difficulty with left hand, with wrist drop/weakness noted. Tolerating diet.
--- NOTE | 2017-09-27 16:25 | PN ---
Progress Note, Physician History of Present Illness: seen and examined today in nad. at bedside. no overnight events. no new complaints. L hand still weak but reports slight improvement. - Current Medication List Current Medications: Active Medications Aspirin (Ecotrin -) 325 mg PO DAILY [facility] Last Admin: 09/27/17 09:01 Dose: 325 mg Atorvastatin Calcium (Lipitor -) 20 mg PO HS [facility] Last Admin: 09/26/17 22:30 Dose: 20 mg Carbidopa/Levodopa (Sinemet *Cr* 50/200 -) 1 combo PO TID [facility] Last Admin: 09/27/17 14:48 Dose: 1 combo Docusate Sodium (Colace -) 300 mg PO HS [facility] Last Admin: 09/26/17 22:30 Dose: 300 mg Insulin Aspart (Novolog Vial Sliding Scale -) 1 vial SQ [facility]; Protocol Last Admin: 09/27/17 11:37 Dose: Not Given Metoprolol Succinate (Toprol Xl -) 100 mg PO DAILY [facility] Last Admin: 09/27/17 09:01 Dose: 100 mg Rasagiline (Azilect -) 0.5 mg PO DAILY [facility] Last Admin: 09/27/17 09:00 Dose: 0.5 mg Tamsulosin HCl (Flomax -) 0.4 mg PO DAILY@0830 [facility] Last Admin: 09/27/17 08:49 Dose: 0.4 mg - Objective Vital Signs: Vital Signs Temperature 98.1 F 09/27/17 07:30 Pulse Rate 70 09/27/17 07:30 Respiratory Rate 18 09/27/17 07:30 Blood Pressure 147/88 09/27/17 07:30 O2 Sat by Pulse Oximetry (%) 97 09/27/17 07:27 Constitutional: Yes: No Distress, Calm Eyes: Yes: Conjunctiva Clear, EOM Intact, PERRL HENT: Yes: Atraumatic, Normocephalic Neck: Yes: Supple, Trachea Midline Cardiovascular: Yes: Regular Rate and Rhythm, Murmur, S1, S2. No: Bradycardia, Tachycardia, Pulse Irregular, Bruit, JVD, Gallop, Rub, S3, S4, Varicosities Respiratory: Yes: Regular, CTA Bilaterally. No: Rales, Rhonchi, Wheezes Gastrointestinal: Yes: Normal Bowel Sounds, Soft. No: Distention, Tenderness Musculoskeletal: Yes: Muscle Weakness Extremities: Yes: WNL Edema: No Peripheral Pulses WNL: Yes Peripheral Pulses: Left Doralis Pedis: 2+, Right Dorsalis Pedis: 2+ Neurological: Yes: Alert, Pre-Existing Deficit Psychiatric: Yes: Alert Labs: CBC, BMP 09/26/17 06:52 09/26/17 06:52 INR, PTT INR 1.09 (0.82-1.09) 09/25/17 10:05 - ....Imaging Chest X-ray: Report Reviewed, Image Reviewed EKG: Report Reviewed, Image Reviewed Other: Report Reviewed, Image Reviewed (tele-nsr, no events recorded) Assessment/Plan 81 year old man with pmh parkinsons disease, HTN, DMII, recent ocular TIA, admitted with weakness L hand. Pt seen and examined in the ER in nad. Pt states that he fell asleep on his left side as he often does due to his parkinsons and when he woke up his left hand was weak. He also notes a mechanical fall prior to coming to ER. He denies any palpitations, lightheadedness, dizziness, syncope , or near syncope. No pnd, orthopnea, or LE edema. No chest pain or sob. L hand weakness, possible CVA, recent ocular TIA -neuro work up in progress, MRI done, as per report no sign of acute infarct ECHO 09/26/17 showed normal LV size and function, mild , mild mr, no pericardial effusion -no arrhythmias recorded on tele -receiving ASA and Lipitor -on Metoprolol, need to clarify indication (presume was being used for HTN not for arrhythmia), cont for now -rec close outpatient fup with plan for longer term event monitor to evaluate for occult arrhythmia No additional inpatient cardiac work up needed at this time. Please call with any additional questions.
--- NOTE | 2017-09-27 19:28 | PN ---
Progress Note (short form) - Note Progress Note: 81 year old man with history of parkinson's disease was sitting on his porch yesterday when he noticed that his left hand was weak. It didn't improve so he ultimately came in, too late for TPA. He initially said that he was numb but upon questioning he now says that he is only weak. He told doctor earlier that he woke up this way this Am and that he fell yesterday. appears to have some memory difficulty. also history of DM and TIA. FU MRI reviewed- no acute CVA, inc dyskinesias and dystonic posturing of exe still mild left wrist drop though he feels getting better sees neuro outpt -- unclear of name MRI BRAIN Impression. Generalized loss of volume of the brain parenchyma with involutional changes, chronic supratentorial white matter microangiopathic ischemic changes, gliosis. No acute infarct is seen on diffusion-weighted images. Chronic right maxillary sinus disease. - Current Medication List Current Medications: Active Medications Aspirin (Ecotrin -) 325 mg PO DAILY [facility] Atorvastatin Calcium (Lipitor -) 20 mg PO HS [facility] Last Admin: 09/25/17 23:00 Dose: 20 mg Carbidopa/Levodopa (Sinemet *Cr* 50/200 -) 1 combo PO TID [facility] Docusate Sodium (Colace -) 300 mg PO HS [facility] Dextrose/Sodium Chloride (D5-Ns -) 1,000 mls @ 75 mls/hr IV ASDIR [facility] Last Admin: 09/25/17 11:19 Dose: 75 mls/hr Insulin Aspart (Novolog Vial Sliding Scale -) 1 vial SQ ACHS [facility]; Protocol Last Admin: 09/26/17 07:25 Dose: Not Given Metoprolol Succinate (Toprol Xl -) 100 mg PO DAILY [facility] Rasagiline (Azilect -) 0.5 mg PO DAILY [facility] Tamsulosin HCl (Flomax -) 0.4 mg PO DAILY@0830 [facility] - Objective Vital Signs: Vital Signs Temperature 98.1 F 09/27/17 07:30 Pulse Rate 70 09/27/17 07:30 Respiratory Rate 18 09/27/17 07:30 Blood Pressure 147/88 09/27/17 07:30 O2 Sat by Pulse Oximetry (%) 97 09/27/17 07:27 Neurological: Yes: Cran Nerves II-XII Intact , sig tremor /dystonia posturing and dyskinesias , left wrist drop Labs: CBCD WBC 7.3 K/mm3 (4.0-10.0) 09/26/17 06:52 RBC 4.43 M/mm3 (4.00-5.60) 09/26/17 06:52 Hgb 13.6 GM/dL (11.7-16.9) 09/26/17 06:52 Hct 40.2 % (35.4-49) 09/26/17 06:52 MCV 90.8 fl (80-96) 09/26/17 06:52 MCHC 33.8 g/dl (32.0-35.9) 09/26/17 06:52 RDW 13.8 % (11.9-15.9) 09/26/17 06:52 Plt Count 210 K/MM3 (134-434) 09/26/17 06:52 MPV 7.9 fl (7.5-11.1) 09/26/17 06:52 CMP Sodium 141 mmol/L (136-145) 09/26/17 06:52 Potassium 4.5 mmol/L (3.5-5.1) 09/26/17 06:52 Chloride 108 mmol/L (98-107) H 09/26/17 06:52 Carbon Dioxide 25 mmol/L (21-32) 09/26/17 06:52 Anion Gap 8 (8-16) 09/26/17 06:52 BUN 23 mg/dL (7-18) H 09/26/17 06:52 Creatinine 1.3 mg/dL (0.7-1.3) 09/26/17 06:52 Creat Clearance w eGFR 53.25 (>60) 09/26/17 06:52 Calcium 8.9 mg/dL (8.5-10.1) 09/26/17 06:52 Total Bilirubin 1.2 mg/dL (0.2-1.0) H 09/26/17 06:52 AST 18 U/L (15-37) D 09/26/17 06:52 ALT 12 U/L (12-78) D 09/26/17 06:52 Alkaline Phosphatase 94 U/L (45-117) 09/26/17 06:52 Total Protein 7.2 g/dl (6.4-8.2) 09/26/17 06:52 Albumin 4.1 g/dl (3.4-5.0) 09/26/17 06:52 Problem List - Problems (1) Hand weakness Code(s): R29.898 - OT SYMPTOMS AND SIGNS INVOLVING THE MUSCULOSKELETAL SYSTEM (2) Acute CVA (cerebrovascular accident) Code(s): I63.9 - CEREBRAL INFARCTION, UNSPECIFIED (3) Diabetes mellitus Code(s): E11.9 - TYPE 2 DIABETES MELLITUS WITHOUT COMPLICATIONS Assessment/Plan Left hand weakness, MRI (-) for acute CVA , suspect positional entrapment , ( radial ? ) , difficulty to fully assess given dyskinesias, would cont PT and rehab for this HX of PD , uncontrolled ; on Sinemet and azilect --left message with family re prior neuro, regimen and his baseline , as he looks quite uncomfortable can add benzotropine 0.[address] Trotter [phone]
[2017-09-27] MEDS: DOCUSATE SODIUM 100 MG CAPSULE (FP) PO SCH (22:57)
[2017-09-27] MEDS: BENZTROPINE MESYLATE 0.5 MG TABLET (FP) PO SCH (22:58)
[2017-09-27] MEDS: ATORVASTATIN CA 20 MG TABLET (FP) PO SCH (22:58)
[2017-09-28] MEDS ORDERED: LORazepam 2 MG/ML SDV VIAL IVPUSH ONE (02:32)
[2017-09-28] MEDS ORDERED: HEMOQUE TEST 1 EACH EACH ONE (06:15)
[2017-09-28] MEDS: INSULIN SLIDING SCALE (NOVOLOG) 1 VIAL SQ SCH ×4 (06:26→23:07)
--- NOTE | 2017-09-28 07:46 | PN ---
Progress Note, Physician History of Present Illness: weakness of hand better unsteady intermittent confusion - Current Medication List Current Medications: Active Medications Aspirin (Ecotrin -) 325 mg PO DAILY [facility] Last Admin: 09/27/17 09:01 Dose: 325 mg Atorvastatin Calcium (Lipitor -) 20 mg PO HS [facility] Last Admin: 09/27/17 22:58 Dose: 20 mg Benztropine Mesylate (Cogentin -) 0.5 mg PO BID [facility] Last Admin: 09/27/17 22:58 Dose: 0.5 mg Carbidopa/Levodopa (Sinemet *Cr* 50/200 -) 1 combo PO TID [facility] Last Admin: 09/28/17 06:17 Dose: 1 combo Docusate Sodium (Colace -) 300 mg PO [facility] Last Admin: 09/27/17 22:57 Dose: 300 mg Insulin Aspart (Novolog Vial Sliding Scale -) 1 vial SQ ACHS [facility]; Protocol Last Admin: 09/28/17 06:26 Dose: 2 unit Metoprolol Succinate (Toprol Xl -) 100 mg PO DAILY [facility] Last Admin: 09/27/17 09:01 Dose: 100 mg Rasagiline (Azilect -) 0.5 mg PO DAILY [facility] Last Admin: 09/27/17 09:00 Dose: 0.5 mg Tamsulosin HCl (Flomax -) 0.4 mg PO DAILY@0830 [facility] Last Admin: 09/27/17 08:49 Dose: 0.4 mg - Objective Vital Signs: Vital Signs Temperature 97.7 F 09/28/17 06:26 Pulse Rate 78 09/28/17 06:26 Respiratory Rate 12 09/28/17 06:26 Blood Pressure 163/80 09/28/17 06:26 O2 Sat by Pulse Oximetry (%) 95 09/27/17 21:00 Cardiovascular: Yes: S1, S2 Respiratory: Yes: Regular, CTA Bilaterally Gastrointestinal: Yes: Normal Bowel Sounds, Soft Neurological: Yes: Alert, Unsteady Gait, Weakness Labs: CBC, BMP 09/26/17 06:52 09/26/17 06:52 INR, PTT INR 1.09 (0.82-1.09) 09/25/17 10:05 Problem List - Problems (1) Acute CVA (cerebrovascular accident) Assessment/Plan: - Cardiac Monitoring - CT Brain-reviewed - Neurology following - Brain MRI done --no cva - Echo - Carotid Doppler noted--no sig stenosis - Neuro checks - Swallow eval - Lipid profile - Serial enzymes - Fall precautions - CBC, BMP in am - Asa - PT--EMG Code(s): I63.9 - CEREBRAL INFARCTION, UNSPECIFIED (2) Diabetes mellitus Assessment/Plan: - Stable - BGMs - ISS when diet resumed - Monitor renal function Code(s): E11.9 - TYPE 2 DIABETES MELLITUS WITHOUT COMPLICATIONS (3) Wrist drop, left Assessment/Plan: -Pt -neuro -emg Code(s): M21.332 - WRIST DROP, LEFT WRIST (4) Parkinson disease Assessment/Plan: SAME MEDS NEURO FOLLOWING Code(s): G20 - PARKINSON'S DISEASE
[2017-09-28] MEDS ORDERED: PT OWN MED DRAWER 7, Y5N ONE ×2 (07:52→23:00)
[2017-09-28] MEDS: ASPIRIN 325 MG ENTERIC COATED TABLET (FP) PO SCH (09:01)
[2017-09-28] MEDS: TAMSULOSIN HCL 0.4 MG CAP.ER.24H (FP) PO SCH (09:01)
[2017-09-28] MEDS: RASAGILINE MESYLATE 1 MG TABLET PO SCH (09:04)
[2017-09-28] MEDS: BENZTROPINE MESYLATE 0.5 MG TABLET (FP) PO SCH ×2 (09:04→23:08)
--- NOTE | 2017-09-28 17:40 | PN ---
Progress Note, Physician Chief Complaint: left hand weakness History of Present Illness: F/U no change in his complaints though his says that his hand strength continues to improve. MRI failed to demonstrate a stroke. 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 81 year old man with history of parkinson's disease was sitting on his porch yesterday when he noticed that his left hand was weak. It didn't improve so he ultimately came in, too late for TPA. He initially said that he was numb but upon questioning he now says that he is only weak. He told doctor earlier that he woke up this way this Am and that he fell yesterday. appears to have some memory difficulty. also history of DM and TIA. - Current Medication List Current Medications: Active Medications Aspirin (Ecotrin -) 325 mg PO DAILY [facility] Last Admin: 09/28/17 09:01 Dose: 325 mg Atorvastatin Calcium (Lipitor -) 20 mg PO [facility] Last Admin: 09/27/17 22:58 Dose: 20 mg Benztropine Mesylate (Cogentin -) 0.5 mg PO BID [facility] Last Admin: 09/28/17 09:04 Dose: 0.5 mg Carbidopa/Levodopa (Sinemet *Cr* 50/200 -) 1 combo PO TID [facility] Last Admin: 09/28/17 15:47 Dose: 1 combo Docusate Sodium (Colace -) 300 mg PO [facility] Last Admin: 09/27/17 22:57 Dose: 300 mg Insulin Aspart (Novolog Vial Sliding Scale -) 1 vial SQ ACHS [facility]; Protocol Last Admin: 09/28/17 12:11 Dose: Not Given Metoprolol Succinate (Toprol Xl -) 100 mg PO DAILY [facility] Last Admin: 09/28/17 09:01 Dose: 100 mg Rasagiline (Azilect -) 0.5 mg PO DAILY [facility] Last Admin: 09/28/17 09:04 Dose: 0.5 mg Tamsulosin HCl (Flomax -) 0.4 mg PO DAILY@0830 [facility] Last Admin: 09/28/17 09:01 Dose: 0.4 mg - Objective Vital Signs: Vital Signs Temperature 98.2 F 09/28/17 08:09 Pulse Rate 77 09/28/17 08:09 Respiratory Rate 20 09/28/17 09:31 Blood Pressure 184/97 09/28/17 08:09 O2 Sat by Pulse Oximetry (%) 98 09/28/17 09:31 Labs: CBC, BMP 09/26/17 06:52 09/26/17 06:52 INR, PTT INR 1.09 (0.82-1.09) 09/25/17 10:05 Problem List - Problems (1) Hand weakness Code(s): R29.898 - OTH SYMPTOMS AND SIGNS INVOLVING THE MUSCULOSKELETAL SYSTEM (2) Acute CVA (cerebrovascular accident) Code(s): I63.9 - CEREBRAL INFARCTION, UNSPECIFIED (3) Diabetes mellitus Code(s): E11.9 - TYPE 2 DIABETES MELLITUS WITHOUT COMPLICATIONS Assessment/Plan Given that he has negative MRI this is not a stroke but a compression neuropathy and what looked like a facial weakness was likely assymetry from another reason. He can be discharged with f/u by his primary neurologist, Dr. Lombardo. Thanks. Please call with further questions.
--- NOTE | 2017-09-28 20:32 | FALL ---
Fall Exam - Event Witnessed fall: No Location of Fall: Patient Room Fall from: Bed - Pre-Fall Mental Status: Oriented (x2 with some confusion- baseline) Current Medications: Current Medications Generic Name Dose Route Start Last Admin Trade Name Roosevelt PRN Reason Stop Dose Admin Aspirin 325 mg 09/26/17 11:00 09/28/17 09:01 Ecotrin - PO 325 mg DAILY [facility] Administration Atorvastatin Calcium 20 mg 09/25/17 22:00 09/27/17 22:58 Lipitor - PO 20 mg HS [facility] Administration Benztropine Mesylate 0.5 mg 09/27/17 22:00 09/28/17 09:04 Cogentin - PO 0.5 mg BID [facility] Administration Carbidopa/Levodopa 1 combo 09/26/17 14:00 09/28/17 15:47 Sinemet *Cr* 50/200 - PO 1 combo TID [facility] Administration Docusate Sodium 300 mg 09/26/17 22:00 09/27/17 22:57 Colace - PO 300 mg HS [facility] Administration Insulin Aspart 1 vial 09/25/17 22:00 09/28/17 18:41 Novolog Vial Sliding Scale - SQ 2 unit ACHS [facility] Administration Protocol Metoprolol Succinate 100 mg 09/26/17 11:00 09/28/17 09:01 Toprol Xl - PO 100 mg DAILY [facility] Administration Rasagiline 0.5 mg 09/26/17 11:00 09/28/17 09:04 Azilect - PO 0.5 mg DAILY [facility] Administration Tamsulosin HCl 0.4 mg 09/26/17 11:00 09/28/17 09:01 Flomax - PO 0.4 mg DAILY@0830 [facility] Administration - Post-Fall Patient Outcome: No Injury Exam Findings: AAOx2- baseline, HEENT:Atraumatic, normocephalic. CTAP, NSR S1 S2, Extremities- spastic contractures- baseline, PROM of extremites, non tender. Vital Signs: Vital Signs Temperature 97.8 F 09/28/17 19:00 Pulse Rate 81 09/28/17 20:14 Respiratory Rate 18 09/28/17 20:14 Blood Pressure 157/82 09/28/17 20:14 O2 Sat by Pulse Oximetry (%) 98 09/28/17 09:31 LOC Post-Fall: Unchanged Identify factors for HIGH RISK for Head Injury: Pt on anticoagulant
[2017-09-28] MEDS: DOCUSATE SODIUM 100 MG CAPSULE (FP) PO SCH (23:08)
[2017-09-28] MEDS: ATORVASTATIN CA 20 MG TABLET (FP) PO SCH (23:08)
[2017-09-29] MEDS: INSULIN SLIDING SCALE (NOVOLOG) 1 VIAL SQ SCH ×4 (06:31→22:04)
[2017-09-29] MEDS: TAMSULOSIN HCL 0.4 MG CAP.ER.24H (FP) PO SCH (08:30)
--- NOTE | 2017-09-29 08:48 | CONS ---
DATE OF CONSULTATION: 09/28/2017 DATE OF ELECTRODIAGNOSTIC STUDY: 09/28/2017 PHYSICAL MEDICINE REHABILITATION AND ELECTRODIAGNOSTIC CONSULTATION HISTORY OF PRESENT ILLNESS: The patient is a 81-year-old man with past medical history of diabetes as well as Parkinson disease, who was admitted with left upper extremity weakness on September 25, 2017. The day prior to admission, the patient apparently fell asleep on the porch, possibly awkwardly, on his left side. When he awoke, he had some weakness and difficulty moving his left hand and fingers. The patient apparently subsequently fell and presented to [facility] Emergency Room the following room, on September 25, 2017, undergoing workup for possible acute stroke. The patient underwent CT of the head which showed no acute intracranial pathology and subsequently underwent brain MRI, which demonstrated no acute infarction, on September 26, 2017. There was generalized volume loss with involuntarily changes, chronic supratentorial white matter microangiopathic ischemic changes and gliosis, with chronic right maxillary sinus disease noted. The patient was seen by Neurology , who felt he had possible radial nerve palsy, but was difficult to examine due to multiple factors, including his Parkinson disease and possibly mental status. The patient had normal CBC on admission, WBCs 5.9, hemoglobin 12.6, platelet count 196. INR was normal at 1.09. Chemistry on admission: His potassium was slightly elevated at 5.2, BUN elevated at 24, creatinine 1.3. He had normal CPK of 139, total protein 6.9 , albumin 3.8. Repeat chemistry on September 26 showed normalization of potassium to 4.5, BUN slightly improved to 23, creatinine normal at 1.3. Per his , he is moving his left hand a little bit better, but was referred for electrodiagnostic evaluation to assess for radial neuropathy or other etiology. REVIEW PAST MEDICAL AND SURGICAL HISTORY: As above. He has a history of Parkinson disease, diabetes, hypertension, TIA, possible mild dementia. SOCIAL HISTORY: Lives with his . Prior to admission he occasionally used assistive device but could ambulate without any cane. CURRENT FUNCTION: He was seen and did get out of bed into a chair. Per the Physical Therapy note on September 28, he was max assist for ambulation, standing only. Moderate assist for supine to sit, although he reports no injuries from the fall prior to admission. REVIEW OF SYSTEMS: Difficult due to his mental status, but he appears to complain of weakness and numbness in the left hand without any significant lower extremity weakness or right upper extremity weakness. He has baseline tremors but no new difficulty chewing or swallowing. No blurry vision or double vision. No chest pain, shortness of breath, fever or chills. No bowel or bladder change. No numbness or tingling in the distal lower extremities. No significant weight change. PHYSICAL EXAMINATION: General: The patient is an elderly man seen sitting up in a wheelchair. He is in no acute distress. HEENT: He is normocephalic and atraumatic. His extraocular muscles appear intact. He has mask facies but no facial weakness. Extremities: Without any pitting edema or calf tenderness. Skin: Without any rash or breakdown. Neuromuscular: He is awake, alert, and for the most part cooperative. He does have baseline tremors and poor attention span, which makes the examination difficult. He seems to have slightly diminished sensation in the dorsum of the left hand in a radial nerve distribution, but intact in the 5th digit and on the palmar surface in a median nerve distribution to pinprick and more proximally intact to pinprick as well as in the lower extremities and right upper extremity. He has difficulty extending his wrist and his fingers. Difficult to assess intrinsics, but he seems to have a little better strength in intrinsics and thenar muscles, and fairly good elbow flexion and elbow extension, but he is unable to extend the wrist actively. He is able to flex his wrist in the left upper extremity and his shoulder range is fairly good. He has good strength and range in the right upper extremity and fairly good strength in the lower extremities with some mild proximal weakness. Unable to assess gait. Symmetric reflexes. RESULTS OF ELECTROMYOGRAPHIC AND NERVE CONDUCTION STUDIES: Please refer to report for details. OVERALL IMPRESSION: 1. 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 2. Unable to determine with certainty that this is a neuropraxic lesion, but the exam is consistent with neuropraxia, although axonal degeneration may take a few more days to fully develop and denervation could take a few weeks. Muscle membrane instability could take a few weeks to develop. 3. No advanced carpal tunnel syndrome or ulnar neuropathy. 4. Cannot rule out an early diabetic polyneuropathy with prolonged distal latencies, but this may be due to cool skin temperature. 5. Gait disorder. 6. Status post fall. 7. Parkinson disease. 8. Left wrist drop. 9. Status post hyperkalemia. 10. Type 2 diabetes. PLAN AND SUGGESTIONS: 1. Would suggest a left cock-up splint to be worn to assist with wrist extension and prevent laxity in the ligaments. 2. Continue physical therapy at the bedside. 3. Out of bed to chair. 4. May require short term rehab in a [facility] facility. 5. Neurologic followup. 6. Consider followup EMG study if he does not gain significant improvement in the next few months. 7. DVT prophylaxis. Would strongly consider subQ heparin 5000 units q.12 hours until the patient is more mobile. Thank you for this consultation. EFFIE DAHL M.D. [id number] MTDD
[2017-09-29] MEDS ORDERED: PT OWN MED DRAWER 7, Y5N ONE ×3 (09:47→21:15)
[2017-09-29] MEDS: RASAGILINE MESYLATE 1 MG TABLET PO SCH (10:02)
[2017-09-29] MEDS: ASPIRIN 325 MG ENTERIC COATED TABLET (FP) PO SCH (10:02)
[2017-09-29] MEDS: BENZTROPINE MESYLATE 0.5 MG TABLET (FP) PO SCH ×2 (10:02→22:05)
--- NOTE | 2017-09-29 14:36 | PN ---
Progress Note, Physician Chief Complaint: RESTRAINTS RESTARTED CONFUSED DELERIUM - Current Medication List Current Medications: Active Medications Aspirin (Ecotrin -) 325 mg PO DAILY [facility] Last Admin: 09/29/17 10:02 Dose: 325 mg Atorvastatin Calcium (Lipitor -) 20 mg PO HS [facility] Last Admin: 09/28/17 23:08 Dose: 20 mg Benztropine Mesylate (Cogentin -) 0.5 mg PO BID [facility] Last Admin: 09/29/17 10:02 Dose: 0.5 mg Carbidopa/Levodopa (Sinemet *Cr* 50/200 -) 1 combo PO TID [facility] Last Admin: 09/29/17 06:31 Dose: 1 combo Docusate Sodium (Colace -) 300 mg PO HS [facility] Last Admin: 09/28/17 23:08 Dose: 300 mg Insulin Aspart (Novolog Vial Sliding Scale -) 1 vial SQ [facility]; Protocol Last Admin: 09/29/17 12:22 Dose: Not Given Metoprolol Succinate (Toprol Xl -) 100 mg PO DAILY [facility] Last Admin: 09/29/17 10:01 Dose: 100 mg Rasagiline (Azilect -) 0.5 mg PO DAILY [facility] Last Admin: 09/29/17 10:02 Dose: 0.5 mg Tamsulosin HCl (Flomax -) 0.4 mg PO DAILY@0830 [facility] Last Admin: 09/29/17 08:30 Dose: 0.4 mg - Objective Vital Signs: Vital Signs Temperature 98.6 F 09/29/17 14:13 Pulse Rate 83 09/29/17 14:13 Respiratory Rate 16 09/29/17 14:13 Blood Pressure 148/86 09/29/17 14:13 O2 Sat by Pulse Oximetry (%) 97 09/28/17 21:00 Constitutional: Yes: Mild Distress Eyes: Yes: WNL HENT: Yes: WNL Neck: Yes: WNL Cardiovascular: Yes: WNL Respiratory: Yes: WNL Gastrointestinal: Yes: WNL Genitourinary: Yes: WNL Musculoskeletal: Yes: WNL Extremities: Yes: WNL Edema: No Peripheral Pulses WNL: Yes Integumentary: Yes: WNL Wound/Incision: Yes: Clean/Dry Neurological: Yes: Confusion ...Motor Strength: LLE, RLE Psychiatric: Yes: Other Labs: CBC, BMP 09/26/17 06:52 09/26/17 06:52 INR, PTT INR 1.09 (0.82-1.09) 09/25/17 10:05 Problem List - Problems (1) Confusion and disorientation Code(s): F99 - MENTAL DISORDER, NOT OTHERWISE SPECIFIED (2) Acute radial nerve palsy Code(s): G56.30 - LESION OF RADIAL NERVE, UNSPECIFIED UPPER LIMB Qualifiers: Laterality: left Qualified Code(s): G56.32 - Lesion of radial nerve, left upper limb (3) Diabetes mellitus Code(s): E11.9 - TYPE 2 DIABETES MELLITUS WITHOUT COMPLICATIONS (4) Hand weakness Code(s): R29.898 - OT SYMPTOMS AND SIGNS INVOLVING THE MUSCULOSKELETAL SYSTEM (5) Parkinson disease Code(s): G20 - PARKINSON'S DISEASE (6) TIA (transient ischemic attack) Code(s): G45.9 - TRANSIENT CEREBRAL ISCHEMIC ATTACK, UNSPECIFIED Assessment/Plan RESTRAINTS FOR FALL RISKS NEUROLOGY EVAL APPRECIATED SNF IF CANT WALK ON HIS OWN UNSTEADY GAIT D/W BEDSIDE
[2017-09-29 16:23] LABS: HEMATOCRIT 39.6 % (35.4-49); HEMOGLOBIN 13.2 GM/dL (11.7-16.9); MCH 30.3 pg (25.7-33.7); MCHC 33.3 g/dl (32.0-35.9); MEAN CELL VOLUME 91.2 fl (80-96); MEAN PLT VOLUME 8.3 fl (7.5-11.1); PLATELET COUNT 219 K/MM3 (134-434); RBC 4.34 M/mm3 (4.00-5.60); RDW 14.1 % (11.9-15.9); WHITE BLOOD COUNT 5.3 K/mm3 (4.0-10.0)
[2017-09-29 16:53] LABS: ALBUMIN 3.6 g/dl (3.4-5.0); ANION GAP 10 (8-16); BILIRUBIN,TOTAL 1.3 mg/dL (0.2-1.0); BLOOD UREA NITROGEN 32 mg/dL (7-18); CALCIUM 8.8 mg/dL (8.5-10.1); CHLORIDE 108 mmol/L (98-107); CO2 27 mmol/L (21-32); CREATININE 1.4 mg/dL (0.7-1.3); GLUCOSE,RANDOM 171 mg/dL (74-106); POTASSIUM 4.3 mmol/L (3.5-5.1); SGOT/AST 19 U/L (15-37); SGPT/ALT 9 U/L (12-78); SODIUM 145 mmol/L (136-145); TOT PROT 6.7 g/dl (6.4-8.2)
[2017-09-29 16:54] LABS: ALK PHOS 88 U/L (45-117)
--- NOTE | 2017-09-29 17:58 | PN ---
Progress Note, Physician Chief Complaint: left hand weakness History of Present Illness: F/U no change in his complaints though his says that his hand strength continues to improve. MRI failed to demonstrate a stroke. 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 81 year old man with history of parkinson's disease was sitting on his porch yesterday when he noticed that his left hand was weak. It didn't improve so he ultimately came in, too late for TPA. He initially said that he was numb but upon questioning he now says that he is only weak. He told doctor earlier that he woke up this way this Am and that he fell yesterday. appears to have some memory difficulty. also history of DM and TIA. - Current Medication List Current Medications: Active Medications Aspirin (Ecotrin -) 325 mg PO DAILY [facility] Last Admin: 09/29/17 10:02 Dose: 325 mg Atorvastatin Calcium (Lipitor -) 20 mg PO HS [facility] Last Admin: 09/28/17 23:08 Dose: 20 mg Benztropine Mesylate (Cogentin -) 0.5 mg PO BID [facility] Last Admin: 09/29/17 10:02 Dose: 0.5 mg Carbidopa/Levodopa (Sinemet *Cr* 50/200 -) 1 combo PO TID [facility] Last Admin: 09/29/17 15:16 Dose: 1 combo Docusate Sodium (Colace -) 300 mg PO [facility] Last Admin: 09/28/17 23:08 Dose: 300 mg Insulin Aspart (Novolog Vial Sliding Scale -) 1 vial SQ ACHS [facility]; Protocol Last Admin: 09/29/17 12:22 Dose: Not Given Metoprolol Succinate (Toprol Xl -) 100 mg PO DAILY [facility] Last Admin: 09/29/17 10:01 Dose: 100 mg Rasagiline (Azilect -) 0.5 mg PO DAILY [facility] Last Admin: 09/29/17 10:02 Dose: 0.5 mg Tamsulosin HCl (Flomax -) 0.4 mg PO DAILY@0830 [facility] Last Admin: 09/29/17 08:30 Dose: 0.4 mg - Objective Vital Signs: Vital Signs Temperature 98.0 F 09/29/17 14:28 Pulse Rate 78 09/29/17 14:28 Respiratory Rate 16 09/29/17 14:28 Blood Pressure 138/78 09/29/17 14:28 O2 Sat by Pulse Oximetry (%) 95 09/29/17 09:00 Neurological: Yes: Tremors (moves limbs symmetrically. slight increase in hand strength), Other Labs: CBC, BMP 09/29/17 15:00 09/29/17 15:00 INR, PTT INR 1.09 (0.82-1.09) 09/25/17 10:05 Problem List - Problems (1) Hand weakness Code(s): R29.898 - OTH SYMPTOMS AND SIGNS INVOLVING THE MUSCULOSKELETAL SYSTEM (2) Diabetes mellitus Code(s): E11.9 - TYPE 2 DIABETES MELLITUS WITHOUT COMPLICATIONS (3) Acute radial nerve palsy Code(s): G56.30 - LESION OF RADIAL NERVE, UNSPECIFIED UPPER LIMB Qualifiers: Laterality: left Qualified Code(s): G56.32 - Lesion of radial nerve, left upper limb Assessment/Plan Given that he has negative MRI this is not a stroke but a compression neuropathy and what looked like a facial weakness was likely assymetry from another reason. He can be discharged with f/u by his primary neurologist, Dr. Lombardo. Thanks. Please call with further questions.
[2017-09-29] MEDS ORDERED: INSULIN (NOVOLOG) ASPART 100 UNITS/ML 10ML VIAL ONE (21:47)
[2017-09-29] MEDS: ATORVASTATIN CA 20 MG TABLET (FP) PO SCH (22:05)
[2017-09-29] MEDS: DOCUSATE SODIUM 100 MG CAPSULE (FP) PO SCH (22:06)
[2017-09-30] MEDS: INSULIN SLIDING SCALE (NOVOLOG) 1 VIAL SQ SCH ×4 (06:30→21:37)
[2017-09-30] MEDS: TAMSULOSIN HCL 0.4 MG CAP.ER.24H (FP) PO SCH (09:30)
[2017-09-30] MEDS: BENZTROPINE MESYLATE 0.5 MG TABLET (FP) PO SCH ×2 (09:32→21:29)
[2017-09-30] MEDS: ASPIRIN 325 MG ENTERIC COATED TABLET (FP) PO SCH (09:32)
[2017-09-30] MEDS: RASAGILINE MESYLATE 1 MG TABLET PO SCH (09:40)
--- NOTE | 2017-09-30 11:55 | PN ---
Progress Note, Physician Chief Complaint: AWAKE AND MORE ALERT TODAY BEDSIDE STILL HAVING UNSTEADY GAIT RESTRAINT VEST FOR FALL PRECAUTION/SAFETY - Current Medication List Current Medications: Active Medications Aspirin (Ecotrin -) 325 mg PO DAILY [facility] Last Admin: 09/30/17 09:32 Dose: 325 mg Atorvastatin Calcium (Lipitor -) 20 mg PO [facility] Last Admin: 09/29/17 22:05 Dose: 20 mg Benztropine Mesylate (Cogentin -) 0.5 mg PO BID [facility] Last Admin: 09/30/17 09:32 Dose: 0.5 mg Carbidopa/Levodopa (Sinemet *Cr* 50/200 -) 1 combo PO TID [facility] Last Admin: 09/30/17 06:30 Dose: 1 combo Docusate Sodium (Colace -) 300 mg PO [facility] Last Admin: 09/29/17 22:06 Dose: 300 mg Insulin Aspart (Novolog Vial Sliding Scale -) 1 vial SQ [facility]; Protocol Last Admin: 09/30/17 11:04 Dose: Not Given Metoprolol Succinate (Toprol Xl -) 100 mg PO DAILY [facility] Last Admin: 09/30/17 11:03 Dose: Not Given Rasagiline (Azilect -) 0.5 mg PO DAILY [facility] Last Admin: 09/30/17 09:40 Dose: 0.5 mg Tamsulosin HCl (Flomax -) 0.4 mg PO DAILY@0830 [facility] Last Admin: 09/30/17 09:30 Dose: 0.4 mg - Objective Vital Signs: Vital Signs Temperature 97.4 F L 09/30/17 10:00 Pulse Rate 72 09/30/17 10:00 Respiratory Rate 20 09/30/17 10:00 Blood Pressure 144/81 09/30/17 10:00 O2 Sat by Pulse Oximetry (%) 94 L 09/29/17 21:00 Constitutional: Yes: Mild Distress Eyes: Yes: WNL HENT: Yes: WNL Neck: Yes: WNL Cardiovascular: Yes: WNL Respiratory: Yes: WNL Gastrointestinal: Yes: WNL Genitourinary: Yes: WNL Musculoskeletal: Yes: Muscle Weakness Extremities: Yes: WNL Peripheral Pulses WNL: No Integumentary: Yes: WNL Wound/Incision: Yes: Clean/Dry Neurological: Yes: Confusion, Unsteady Gait ...Motor Strength: LLE, RLE Psychiatric: Yes: Other Labs: CBC, BMP 09/29/17 15:00 09/29/17 15:00 INR, PTT INR 1.09 (0.82-1.09) 09/25/17 10:05 Problem List - Problems (1) Confusion and disorientation Code(s): F99 - MENTAL DISORDER, NOT OTHERWISE SPECIFIED (2) Acute radial nerve palsy Code(s): G56.30 - LESION OF RADIAL NERVE, UNSPECIFIED UPPER LIMB Qualifiers: Laterality: left Qualified Code(s): G56.32 - Lesion of radial nerve, left upper limb (3) Diabetes mellitus Code(s): E11.9 - TYPE 2 DIABETES MELLITUS WITHOUT COMPLICATIONS (4) Hand weakness Code(s): R29.898 - OTH SYMPTOMS AND SIGNS INVOLVING THE MUSCULOSKELETAL SYSTEM (5) Parkinson disease Code(s): G20 - PARKINSON'S DISEASE (6) TIA (transient ischemic attack) Code(s): G45.9 - TRANSIENT CEREBRAL ISCHEMIC ATTACK, UNSPECIFIED Assessment/Plan WILL NEED HOME HEALTH CARE FOR ASSISTANCE CONTINUE VEST FOR RESTRAINT OOB TO CHAIR WITH ASSIST NEURO EVAL APPRECIATED PT EVAL
[2017-09-30] MEDS ORDERED: MAGNESIUM HYDROX 2400MG/30ML ORAL SUSPENSION 30 ML CUP PO ONE (13:15)
[2017-09-30] MEDS: SENNOSIDES 8.6MG TABLET (FP) PO SCH ×2 (13:22→21:29)
[2017-09-30] MEDS: ATORVASTATIN CA 20 MG TABLET (FP) PO SCH (21:29)
[2017-10-01] MEDS: INSULIN SLIDING SCALE (NOVOLOG) 1 VIAL SQ SCH ×4 (06:00→21:34)
[2017-10-01] MEDS: TAMSULOSIN HCL 0.4 MG CAP.ER.24H (FP) PO SCH (08:30)
[2017-10-01] MEDS: RASAGILINE MESYLATE 1 MG TABLET PO SCH (09:30)
[2017-10-01] MEDS: ASPIRIN 325 MG ENTERIC COATED TABLET (FP) PO SCH (09:33)
[2017-10-01] MEDS: BENZTROPINE MESYLATE 0.5 MG TABLET (FP) PO SCH ×2 (09:33→21:30)
[2017-10-01] MEDS: SENNOSIDES 8.6MG TABLET (FP) PO SCH ×2 (09:34→21:30)
[2017-10-01] MEDS ORDERED: INSULIN (NOVOLOG) ASPART 100 UNITS/ML 10ML VIAL ONE (11:27)
--- NOTE | 2017-10-01 12:23 | PN ---
Progress Note, Physician Chief Complaint: AWAKE CONFUSED RESTRAINTS STILL APPLIED FOR FALL RISKS - Current Medication List Current Medications: Active Medications Aspirin (Ecotrin -) 325 mg PO DAILY [facility] Last Admin: 10/01/17 09:33 Dose: 325 mg Atorvastatin Calcium (Lipitor -) 20 mg PO HS [facility] Last Admin: 09/30/17 21:29 Dose: 20 mg Benztropine Mesylate (Cogentin -) 0.5 mg PO BID [facility] Last Admin: 10/01/17 09:33 Dose: 0.5 mg Carbidopa/Levodopa (Sinemet *Cr* 50/200 -) 1 combo PO TID [facility] Last Admin: 10/01/17 05:28 Dose: 1 combo Insulin Aspart (Novolog Vial Sliding Scale -) 1 vial SQ ACHS [facility]; Protocol Last Admin: 10/01/17 11:37 Dose: 2 units Metoprolol Succinate (Toprol Xl -) 100 mg PO DAILY [facility] Last Admin: 10/01/17 09:34 Dose: 100 mg Rasagiline (Azilect -) 0.5 mg PO DAILY [facility] Last Admin: 10/01/17 09:30 Dose: 0.5 mg Senna (Senna -) 1 tab PO BID [facility] Last Admin: 10/01/17 09:34 Dose: 1 tab Tamsulosin HCl (Flomax -) 0.4 mg PO DAILY@0830 [facility] Last Admin: 10/01/17 08:30 Dose: 0.4 mg - Objective Vital Signs: Vital Signs Temperature 98.2 F 10/01/17 10:00 Pulse Rate 74 10/01/17 10:00 Respiratory Rate 20 10/01/17 10:00 Blood Pressure 155/89 10/01/17 10:00 O2 Sat by Pulse Oximetry (%) 96 10/01/17 09:00 Constitutional: Yes: Mild Distress Eyes: Yes: WNL HENT: Yes: WNL Neck: Yes: WNL Cardiovascular: Yes: WNL Respiratory: Yes: WNL Gastrointestinal: Yes: WNL Genitourinary: Yes: WNL Musculoskeletal: Yes: Muscle Weakness Extremities: Yes: WNL Peripheral Pulses WNL: Yes Integumentary: Yes: WNL Wound/Incision: Yes: Clean/Dry Neurological: Yes: Pre-Existing Deficit, Unsteady Gait ...Motor Strength: LLE, RLE Psychiatric: Yes: Other Labs: CBC, BMP 09/29/17 15:00 09/29/17 15:00 INR, PTT INR 1.09 (0.82-1.09) 09/25/17 10:05 Problem List - Problems (1) Confusion and disorientation Code(s): F99 - MENTAL DISORDER, NOT OTHERWISE SPECIFIED (2) Acute radial nerve palsy Code(s): G56.30 - LESION OF RADIAL NERVE, UNSPECIFIED UPPER LIMB Qualifiers: Laterality: left Qualified Code(s): G56.32 - Lesion of radial nerve, left upper limb (3) Diabetes mellitus Code(s): E11.9 - TYPE 2 DIABETES MELLITUS WITHOUT COMPLICATIONS (4) Hand weakness Code(s): R29.898 - OT SYMPTOMS AND SIGNS INVOLVING THE MUSCULOSKELETAL SYSTEM (5) Parkinson disease Code(s): G20 - PARKINSON'S DISEASE (6) TIA (transient ischemic attack) Code(s): G45.9 - TRANSIENT CEREBRAL ISCHEMIC ATTACK, UNSPECIFIED Assessment/Plan WILL NEED HOME HEALTH CARE FOR ASSISTANCE CONTINUE VEST FOR RESTRAINT OOB TO CHAIR WITH ASSIST NEURO EVAL APPRECIATED PT EVAL POSSIBLE SNF PLACEMENT
[2017-10-01] MEDS ORDERED: PT OWN MED DRAWER 7, Y5N ONE (16:14)
[2017-10-01] MEDS: ATORVASTATIN CA 20 MG TABLET (FP) PO SCH (21:30)
[2017-10-02] MEDS: INSULIN SLIDING SCALE (NOVOLOG) 1 VIAL SQ SCH ×4 (06:01→22:52)
[2017-10-02] MEDS ORDERED: INSULIN (NOVOLOG) ASPART 100 UNITS/ML 10ML VIAL ONE (06:11)
[2017-10-02 07:24] LABS: HEMATOCRIT 38.6 % (35.4-49); HEMOGLOBIN 13.1 GM/dL (11.7-16.9); MCH 30.7 pg (25.7-33.7); MCHC 33.8 g/dl (32.0-35.9); MEAN CELL VOLUME 90.6 fl (80-96); MEAN PLT VOLUME 8.2 fl (7.5-11.1); PLATELET COUNT 175 K/MM3 (134-434); RBC 4.26 M/mm3 (4.00-5.60); RDW 13.8 % (11.9-15.9); WHITE BLOOD COUNT 5.3 K/mm3 (4.0-10.0)
[2017-10-02 07:28] LABS: ALBUMIN 3.4 g/dl (3.4-5.0); ANION GAP 8 (8-16); BLOOD UREA NITROGEN 38 mg/dL (7-18); CALCIUM 8.6 mg/dL (8.5-10.1); CHLORIDE 109 mmol/L (98-107); CO2 26 mmol/L (21-32); GLUCOSE,RANDOM 142 mg/dL (74-106); MAGNESIUM 1.9 mg/dL (1.8-2.4); POTASSIUM 4.4 mmol/L (3.5-5.1); SGOT/AST 23 U/L (15-37); SGPT/ALT 10 U/L (12-78); SODIUM 143 mmol/L (136-145)
[2017-10-02 07:30] LABS: ALK PHOS 88 U/L (45-117); BILIRUBIN,TOTAL 1.4 mg/dL (0.2-1.0); CREATININE 1.2 mg/dL (0.7-1.3); TOT PROT 6.4 g/dl (6.4-8.2)
[2017-10-02] MEDS: TAMSULOSIN HCL 0.4 MG CAP.ER.24H (FP) PO SCH (08:30)
[2017-10-02] MEDS ORDERED: PT OWN MED DRAWER 7, Y5N ONE ×2 (10:16→22:29)
[2017-10-02] MEDS: SENNOSIDES 8.6MG TABLET (FP) PO SCH ×2 (10:25→22:51)
[2017-10-02] MEDS: BENZTROPINE MESYLATE 0.5 MG TABLET (FP) PO SCH ×2 (10:25→22:51)
[2017-10-02] MEDS: ASPIRIN 325 MG ENTERIC COATED TABLET (FP) PO SCH (10:25)
[2017-10-02] MEDS: RASAGILINE MESYLATE 1 MG TABLET PO SCH (10:26)
--- NOTE | 2017-10-02 12:38 | DS ---
Physical Examination Vital Signs: Vital Signs Temperature 97.3 F L 10/02/17 10:00 Pulse Rate 71 10/02/17 10:00 Respiratory Rate 20 10/02/17 10:00 Blood Pressure 105/58 10/02/17 10:00 O2 Sat by Pulse Oximetry (%) 96 10/01/17 21:00 Constitutional: Yes: Well Nourished, No Distress, Calm Cardiovascular: Yes: Regular Rate and Rhythm Respiratory: Yes: Regular Gastrointestinal: Yes: Normal Bowel Sounds, Soft Musculoskeletal: Yes: Muscle Weakness Extremities: Yes: WNL Edema: No Peripheral Pulses WNL: Yes Neurological: Yes: Alert, Pre-Existing Deficit Psychiatric: Yes: Alert Labs: CBC, BMP 10/02/17 05:55 10/02/17 05:55 Discharge Summary Reason For Visit: WEAKNESS OF HAND Current Active Problems Acute radial nerve palsy (Acute) Confusion and disorientation (Acute) Diabetes mellitus (Acute) Hand weakness (Acute) Parkinson disease (Acute) TIA (transient ischemic attack) (Acute) Wrist drop, left (Acute) Hospital Course: This is a81 y/o man with a significant PMH of Parkinsons Disease, Diabetes, Hypertension, TIA. Who presents to the ED with difficulty moving the fingers on his left hand today. The patient reports that he was sitting on the porch yesterday while leaning to his left side. The patient woke up this morning with left hand weakness. The patient also reports an unwitnessed fall one hour prior to arrival. The patient states he was standing when he suddenly fell. The patient denies any lightheadedness, dizziness, chest pain or palpitations prior to falling. Patient denies any confusion after the event. The patient denies fever, chills, cough, dizziness, MARTIN, SOB CP, palpitations, AP, N/V/D, constipation, hematura, dysuria. CT head upon admission showed: Moderate atrophy, ventricular dilatation and periventricular chronic microvascular ischemic disease changes. Questionable faint focal low- attenuation density in the right thalamus, laterally/posterior limb of the right internal capsule that may represent a lacunar infarct of indeterminate age. Otherwise, no gross acute infarct is identified. MRI brain: MRI BRAIN Impression. Generalized loss of volume of the brain parenchyma with involutional changes, chronic supratentorial white matter microangiopathic ischemic changes, gliosis. No acute infarct is seen on diffusion-weighted images. Chronic right maxillary sinus disease. He was evaluated by Neurology: Left hand weakness, MRI (-) for acute CVA , suspect positional entrapment , ( radial ? ) , difficulty to fully assess given dyskinesias, would cont PT and rehab. HX of PD , uncontrolled ; on Sinemet and azilect --left message with family re prior neuro, regimen and his baseline , as he looks quite uncomfortable can add benzotropine 0.5 BID for now Condition: Stable - Instructions Referrals: Alfred Todd MD, [Primary Care Provider] - Disposition: [facility] - Home Medications Comprehensive Discharge Medication List: Ambulatory Orders Atorvastatin Ca [Lipitor] 40 mg PO HS 09/25/17 Carbidopa/Levodopa [Carbidopa-Levo ER 50-200 Tab] 1 each PO TID 09/25/17 Docusate Sodium 300 mg PO HS 09/25/17 Metformin HCl [Glucophage] 500 mg PO BID 09/25/17 Metoprolol Succinate [Toprol Xl] 100 mg PO DAILY 09/25/17 Rasagiline Mesylate 0.5 mg PO DAILY 09/25/17 Tamsulosin HCl 0.4 mg PO DAILY 09/25/17
--- NOTE | 2017-10-02 21:20 | PN ---
Progress Note, Physician Chief Complaint: Left hand weakness AMS History of Present Illness: NAD, in bed at bedside knows he is at [facility], knows the president, doesn't know the year, date,month or day. wants to go home Did poorly with PT Has Sundowning in the evening, more so due to environment change - Current Medication List Current Medications: Active Medications Aspirin (Ecotrin -) 325 mg PO DAILY [facility] Last Admin: 10/02/17 10:25 Dose: 325 mg Atorvastatin Calcium (Lipitor -) 20 mg PO HS [facility] Last Admin: 10/01/17 21:30 Dose: 20 mg Benztropine Mesylate (Cogentin -) 0.5 mg PO BID [facility] Last Admin: 10/02/17 10:25 Dose: 0.5 mg Carbidopa/Levodopa (Sinemet *Cr* 50/200 -) 1 combo PO TID [facility] Last Admin: 10/02/17 15:15 Dose: 1 combo Insulin Aspart (Novolog Vial Sliding Scale -) 1 vial SQ ACHS [facility]; Protocol Last Admin: 10/02/17 17:00 Dose: 2 units Metoprolol Succinate (Toprol Xl -) 100 mg PO DAILY [facility] Last Admin: 10/02/17 10:24 Dose: 100 mg Rasagiline (Azilect -) 0.5 mg PO DAILY [facility] Last Admin: 10/02/17 10:26 Dose: 0.5 mg Senna (Senna -) 1 tab PO BID [facility] Last Admin: 10/02/17 10:25 Dose: 1 tab Tamsulosin HCl (Flomax -) 0.4 mg PO DAILY@0830 [facility] Last Admin: 10/02/17 08:30 Dose: 0.4 mg - Objective Vital Signs: Vital Signs Temperature 97.6 F 10/02/17 18:00 Pulse Rate 84 10/02/17 18:00 Respiratory Rate 20 10/02/17 18:00 Blood Pressure 152/71 10/02/17 18:00 O2 Sat by Pulse Oximetry (%) 97 10/02/17 09:00 Constitutional: Yes: Well Nourished, No Distress, Calm Cardiovascular: Yes: Regular Rate and Rhythm Respiratory: Yes: Regular Gastrointestinal: Yes: Normal Bowel Sounds, Soft Musculoskeletal: Yes: Muscle Weakness Edema: No Peripheral Pulses WNL: Yes Neurological: Yes: Alert, Oriented Psychiatric: Yes: Alert, Oriented Labs: CBC, BMP 10/02/17 05:55 10/02/17 05:55 INR, PTT INR 1.09 (0.82-1.09) 09/25/17 10:05 Problem List - Problems (1) Acute radial nerve palsy Assessment/Plan: -CT head unremarkable -Seen by Neurology -Supportive care -Physical therapy and rehab Code(s): G56.30 - LESION OF RADIAL NERVE, UNSPECIFIED UPPER LIMB Qualifiers: Laterality: left Qualified Code(s): G56.32 - Lesion of radial nerve, left upper limb (2) Confusion and disorientation Code(s): F99 - MENTAL DISORDER, NOT OTHERWISE SPECIFIED (3) Diabetes mellitus Assessment/Plan: -A1c at 7.9 -diabetic diet -BGM ACHS -Insulin -RD consult -Endocrinology on board Code(s): E11.9 - TYPE 2 DIABETES MELLITUS WITHOUT COMPLICATIONS (4) Parkinson disease Assessment/Plan: -On Sinemet -On azilect -Seen by neurology Code(s): G20 - PARKINSON'S DISEASE Assessment/Plan see problem list DVt prophylaxis Spoke to at bedside, not sure if she can take care of the patient at home by herself. Has her son-in-law to help out but he is not always there. If pt goes to SNF- prefers to go [facility]- has been there in the past.
[2017-10-02] MEDS: ATORVASTATIN CA 20 MG TABLET (FP) PO SCH (22:51)
[2017-10-03] MEDS: INSULIN SLIDING SCALE (NOVOLOG) 1 VIAL SQ SCH ×4 (06:27→21:49)
[2017-10-03] MEDS: TAMSULOSIN HCL 0.4 MG CAP.ER.24H (FP) PO SCH (08:30)
[2017-10-03] MEDS ORDERED: PT OWN MED DRAWER 7, Y5N ONE ×2 (10:28→21:32)
[2017-10-03] MEDS: ASPIRIN 325 MG ENTERIC COATED TABLET (FP) PO SCH (10:48)
[2017-10-03] MEDS: RASAGILINE MESYLATE 1 MG TABLET PO SCH (10:49)
[2017-10-03] MEDS: BENZTROPINE MESYLATE 0.5 MG TABLET (FP) PO SCH ×2 (10:49→21:49)
[2017-10-03] MEDS: SENNOSIDES 8.6MG TABLET (FP) PO SCH ×2 (10:49→21:49)
--- NOTE | 2017-10-03 19:12 | PN ---
Progress Note, Physician Chief Complaint: Left hand weakness AMS History of Present Illness: NAD, in bed at bedside knows he is at [facility], knows the president, doesn't know the year, date,month or day. wants to go home Did poorly with PT Has Sundowning in the evening, more so due to environment change - Current Medication List Current Medications: Active Medications Aspirin (Ecotrin -) 325 mg PO DAILY [facility] Last Admin: 10/03/17 10:48 Dose: 325 mg Atorvastatin Calcium (Lipitor -) 20 mg PO HS [facility] Last Admin: 10/02/17 22:51 Dose: 20 mg Benztropine Mesylate (Cogentin -) 0.5 mg PO BID [facility] Last Admin: 10/03/17 10:49 Dose: 0.5 mg Carbidopa/Levodopa (Sinemet *Cr* 50/200 -) 1 combo PO TID [facility] Last Admin: 10/03/17 14:32 Dose: 1 combo Insulin Aspart (Novolog Vial Sliding Scale -) 1 vial SQ ACHS [facility]; Protocol Last Admin: 10/03/17 16:21 Dose: 6 units Metoprolol Succinate (Toprol Xl -) 100 mg PO DAILY [facility] Last Admin: 10/03/17 10:49 Dose: 100 mg Rasagiline (Azilect -) 0.5 mg PO DAILY [facility] Last Admin: 10/03/17 10:49 Dose: 0.5 mg Senna (Senna -) 1 tab PO BID [facility] Last Admin: 10/03/17 10:49 Dose: 1 tab Tamsulosin HCl (Flomax -) 0.4 mg PO DAILY@0830 [facility] Last Admin: 10/03/17 08:30 Dose: 0.4 mg - Objective Vital Signs: Vital Signs Temperature 97.7 F 10/03/17 18:00 Pulse Rate 74 10/03/17 18:00 Respiratory Rate 20 10/03/17 18:00 Blood Pressure 151/89 10/03/17 18:00 O2 Sat by Pulse Oximetry (%) 96 10/03/17 09:00 Constitutional: Yes: Well Nourished, No Distress, Calm Cardiovascular: Yes: Regular Rate and Rhythm Respiratory: Yes: Regular Gastrointestinal: Yes: Normal Bowel Sounds, Soft Musculoskeletal: Yes: Muscle Weakness Neurological: Yes: Alert, Pre-Existing Deficit Psychiatric: Yes: Alert Labs: CBC, BMP 10/02/17 05:55 10/02/17 05:55 INR, PTT INR 1.09 (0.82-1.09) 09/25/17 10:05 Problem List - Problems (1) Acute radial nerve palsy Assessment/Plan: -CT head unremarkable -Seen by Neurology -Supportive care -Physical therapy and rehab Code(s): G56.30 - LESION OF RADIAL NERVE, UNSPECIFIED UPPER LIMB Qualifiers: Laterality: left Qualified Code(s): G56.32 - Lesion of radial nerve, left upper limb (2) Confusion and disorientation Code(s): F99 - MENTAL DISORDER, NOT OTHERWISE SPECIFIED (3) Diabetes mellitus Assessment/Plan: -A1c at 7.9 -diabetic diet -BGM ACHS -Insulin -RD consult -Endocrinology on board Code(s): E11.9 - TYPE 2 DIABETES MELLITUS WITHOUT COMPLICATIONS (4) Parkinson disease Assessment/Plan: -On Sinemet -On azilect -Seen by neurology Code(s): G20 - PARKINSON'S DISEASE Assessment/Plan see problem list DVt prophylaxis Spoke to at bedside, not sure if she can take care of the patient at home by herself. Has her son-in-law to help out but he is not always there. If pt goes to SNF- prefers to go [facility]- has been there in the past.
[2017-10-03] MEDS: ATORVASTATIN CA 20 MG TABLET (FP) PO SCH (21:49)
[2017-10-04] MEDS: INSULIN SLIDING SCALE (NOVOLOG) 1 VIAL SQ SCH ×3 (06:30→17:09)
[2017-10-04] MEDS ORDERED: INSULIN (NOVOLOG) ASPART 100 UNITS/ML 10ML VIAL ONE (07:02)
[2017-10-04] MEDS ORDERED: PT OWN MED DRAWER 7, Y5N ONE ×2 (07:03→08:52)
[2017-10-04] MEDS: TAMSULOSIN HCL 0.4 MG CAP.ER.24H (FP) PO SCH (09:00)
[2017-10-04] MEDS: RASAGILINE MESYLATE 1 MG TABLET PO SCH (10:39)
[2017-10-04] MEDS: BENZTROPINE MESYLATE 0.5 MG TABLET (FP) PO SCH (10:40)
[2017-10-04] MEDS: SENNOSIDES 8.6MG TABLET (FP) PO SCH (10:41)
[2017-10-04] MEDS: ASPIRIN 325 MG ENTERIC COATED TABLET (FP) PO SCH (10:42)
--- NOTE | 2017-10-04 11:45 | PN ---
Progress Note, Physician Chief Complaint: Left hand weakness AMS History of Present Illness: NAD, in bed knows he is at [facility], knows the president, doesn't know the year, date,month or day. wants to go home Did poorly with PT Has Sundowning in the evening, more so due to environment change - Current Medication List Current Medications: Active Medications Aspirin (Ecotrin -) 325 mg PO DAILY [facility] Last Admin: 10/04/17 10:42 Dose: 325 mg Atorvastatin Calcium (Lipitor -) 20 mg PO HS [facility] Last Admin: 10/03/17 21:49 Dose: 20 mg Benztropine Mesylate (Cogentin -) 0.5 mg PO BID [facility] Last Admin: 10/04/17 10:40 Dose: 0.5 mg Carbidopa/Levodopa (Sinemet *Cr* 50/200 -) 1 combo PO TID [facility] Last Admin: 10/04/17 06:30 Dose: 1 combo Insulin Aspart (Novolog Vial Sliding Scale -) 1 vial SQ ACHS [facility]; Protocol Last Admin: 10/04/17 06:30 Dose: 2 units Metoprolol Succinate (Toprol Xl -) 100 mg PO DAILY [facility] Last Admin: 10/04/17 10:41 Dose: 100 mg Rasagiline (Azilect -) 0.5 mg PO DAILY [facility] Last Admin: 10/04/17 10:39 Dose: 0.5 mg Senna (Senna -) 1 tab PO BID [facility] Last Admin: 10/04/17 10:41 Dose: 1 tab Tamsulosin HCl (Flomax -) 0.4 mg PO DAILY@0830 [facility] Last Admin: 10/04/17 09:00 Dose: 0.4 mg - Objective Vital Signs: Vital Signs Temperature 97.6 F 10/04/17 06:00 Pulse Rate 67 10/04/17 06:00 Respiratory Rate 18 10/04/17 06:00 Blood Pressure 143/92 10/04/17 06:00 O2 Sat by Pulse Oximetry (%) 94 L 10/03/17 21:00 Constitutional: Yes: Well Nourished, No Distress, Calm Cardiovascular: Yes: Regular Rate and Rhythm Respiratory: Yes: Regular Gastrointestinal: Yes: Normal Bowel Sounds, Soft Labs: CBC, BMP 10/02/17 05:55 10/02/17 05:55 INR, PTT INR 1.09 (0.82-1.09) 09/25/17 10:05 Problem List - Problems (1) Acute radial nerve palsy Assessment/Plan: -CT head unremarkable -Seen by Neurology -Supportive care -Physical therapy and rehab Code(s): G56.30 - LESION OF RADIAL NERVE, UNSPECIFIED UPPER LIMB Qualifiers: Laterality: left Qualified Code(s): G56.32 - Lesion of radial nerve, left upper limb (2) Confusion and disorientation Code(s): F99 - MENTAL DISORDER, NOT OTHERWISE SPECIFIED (3) Diabetes mellitus Assessment/Plan: -A1c at 7.9 -diabetic diet -BGM ACHS -Insulin -RD consult -Endocrinology on board Code(s): E11.9 - TYPE 2 DIABETES MELLITUS WITHOUT COMPLICATIONS (4) Parkinson disease Assessment/Plan: -On Sinemet -On azilect -Seen by neurology Code(s): G20 - PARKINSON'S DISEASE Assessment/Plan see problem list DVt prophylaxis
[2017-10-04 18:54] VITALS: TEMP 98.1
[2017-10-04 20:36] VITALS: BP 156/81; PULSE 74
--- NOTE | 2017-10-05 00:12 | CONSULT ---
Consult Consult Specialty:: endocrine Referred by:: alpesh alvares np Reason for Consultation:: diabetes mellitus - History of Present Illness History of Present Illness: 81 y/o man with a significant PMH of Parkinsons Disease, Diabetes, Hypertension , TIA. Who presents to the ED with difficulty moving the fingers on his left hand today. . The patient woke up this morning with left hand weakness. The patient also had a fall prior to admission at home. The patient states he was standing when he suddenly fell. he denies any lightheadedness, dizziness, chest pain or palpitations prior to falling.. he denies fever, chills, cough, dizziness, MARTIN, SOB CP, or hypoglycemia. 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 Endocrine: Yes: Diabetes Mellitus - Alcohol/Substance Use Hx Alcohol Use: No History of Substance Use: reports: None - Smoking History Smoking history: Former smoker Have you smoked in the past 12 months: No - Social History ADL: Family Assistance History of Recent Travel: No Home Medications - Allergies Allergies/Adverse Reactions: Allergies Allergy/AdvReac Type Severity Reaction Status Date / Time No Known Allergies Allergy Verified 09/25/17 09:27 - Home Medications Home Medications: Ambulatory Orders Carbidopa/Levodopa [Carbidopa-Levo ER 50-200 Tab] 1 each PO TID 09/25/17 Docusate Sodium 300 mg PO HS 09/25/17 Metformin HCl [Glucophage] 500 mg PO BID 09/25/17 Metoprolol Succinate [Toprol Xl] 100 mg PO DAILY 09/25/17 Tamsulosin HCl 0.4 mg PO DAILY 09/25/17 Aspirin Coated [Ecotrin -] 325 mg PO DAILY tablet. 10/04/17 Aspirin [ASA -] 325 mg PO DAILY #30 tablet 10/04/17 Atorvastatin Ca [Lipitor] 40 mg PO HS #30 tablet 10/04/17 Benztropine Mesylate [Cogentin -] 0.5 mg PO BID #60 tablet 10/04/17 Rasagiline Mesylate 0.5 mg PO DAILY #30 tablet 10/04/17 Sennosides [Senna -] 1 tab PO BID tablet 10/04/17 Review of Systems - Review of Systems Constitutional: reports: Weakness Eyes: reports: No Symptoms HENT: reports: No Symptoms Neck: reports: No Symptoms Cardiovascular: reports: Shortness of Breath Respiratory: reports: Exercise Intolerance, SOB on Exertion Endocrine: reports: No Symptoms Physical Exam Vital Signs: Vital Signs Temperature 98.1 F 10/04/17 18:00 Pulse Rate 74 10/04/17 20:34 Respiratory Rate 20 10/04/17 20:34 Blood Pressure 156/81 10/04/17 20:34 O2 Sat by Pulse Oximetry (%) 97 10/04/17 09:00 Constitutional: Yes: Calm Eyes: Yes: EOM Intact HENT: Yes: Normocephalic Neck: Yes: Trachea Midline Cardiovascular: Yes: Regular Rate and Rhythm Respiratory: Yes: CTA Bilaterally Gastrointestinal: Yes: Normal Bowel Sounds ...Rectal Exam: Yes: Deferred Musculoskeletal: Yes: WNL Neurological: Yes: Alert Labs: CBC, BMP 10/02/17 05:55 10/02/17 05:55 Problem List - Problems (1) Acute radial nerve palsy Code(s): G56.30 - LESION OF RADIAL NERVE, UNSPECIFIED UPPER LIMB Qualifiers: Laterality: left Qualified Code(s): G56.32 - Lesion of radial nerve, left upper limb (2) Confusion and disorientation Code(s): F99 - MENTAL DISORDER, NOT OTHERWISE SPECIFIED (3) Diabetes mellitus Code(s): E11.9 - TYPE 2 DIABETES MELLITUS WITHOUT COMPLICATIONS (4) Hand weakness Code(s): R29.898 - OTH SYMPTOMS AND SIGNS INVOLVING THE MUSCULOSKELETAL SYSTEM (5) Parkinson disease Code(s): G20 - PARKINSON'S DISEASE (6) TIA (transient ischemic attack) Code(s): G45.9 - TRANSIENT CEREBRAL ISCHEMIC ATTACK, UNSPECIFIED Assessment/Plan 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 Laboratory Results - last 24 hr 10/04/17 10/04/17 10/04/17 06:29 11:53 17:04 POC Glucometer 183 168 162 tia Laboratory Tests 09/26/17 10/01/17 10/01/17 06:52 16:03 21:32 Sodium Potassium Chloride Carbon Dioxide Anion Gap Creatinine Creat Clearance w eGFR POC Glucometer 151 165 Cholesterol 119 10/02/17 10/02/17 10/02/17 05:37 05:55 12:27 Sodium 143 Potassium 4.4 Chloride 109 H Carbon Dioxide 26 Anion Gap 8 Creatinine 1.2 Creat Clearance w eGFR 58.40 POC Glucometer 134 167 Cholesterol 10/02/17 16:59 Sodium Potassium Chloride Carbon Dioxide Anion Gap Creatinine Creat Clearance w eGFR POC Glucometer 193 Cholesterol plan: bgm qid novolog coverage noted continue with metformin 500mg bid as outpatient con add sitaglyptin 50mg if needed as outpatient follow as outpatient
== END 2017-10-04 21:40 | disposition home health service (06) | DRG 74 ==
LOC: JER 09:24 → JERBED 11:49 → J2W 09-26 10:28 → J5S 09-28 14:27
PROVIDERS: ADMIT Family Medicine; ATTEND Family Medicine
DX: G56.30 Lesion of radial nerve, unspecified upper limb (principal); F05 Delirium due to known physiological condition; I10 Essential (primary) hypertension; E78.5 Hyperlipidemia, unspecified; G20 Parkinson's disease; R29.898 Other symptoms and signs involving the musculoskeletal system; E11.40 Type 2 diabetes mellitus with diabetic neuropathy, unspecified; M21.332 Wrist drop, left wrist; Z86.73 Personal history of transient ischemic attack (TIA), and cerebral infarction without residual deficits; Z87.891 Personal history of nicotine dependence
CPT/HCPCS: 36415; 70450-TC; 70551-TC; 71046-TC-FY; 80053; 80061; 82140; 82550; 82962; 83036; 83721; 83735; 84484; 85025; 85027; 85610; 93005; 93010; 93306-TC; 93880-TC; 95860-TC; 97116-GP; 97161-GP; 99284-25

== ENCOUNTER 2020-02-09 11:28 | Inpatient (IN) | payer BC, OTHER ==
[2020-02-09] MEDS ORDERED: SODIUM CHLORIDE 0.9% 500 ML INFUS.BAG IV ONE ×3 (12:12→15:00)
[2020-02-09] MEDS ORDERED: ACETAMINOPHEN 1000 MG/100 ML VIAL (NON FORMULARY) IVPB ONE (12:31)
[2020-02-09 12:54] LABS: VENOUS BASE EXCESS -3.4 mmol/L (-2-2); VENOUS PCO2 64.1 mmHg (38-52); VENOUS PH 7.225 (7.310-7.410)
[2020-02-09 12:55] LABS: BASO % 0.4 % (0-2.0); EOS % 1.6 % (0-4.5); HEMOGLOBIN 14.8 GM/dL (11.7-16.9); LYMPH % 12.5 % (8-40); MCHC 32.3 g/dl (32.0-35.9); MEAN CELL VOLUME 92.8 fl (80-96); MEAN PLT VOLUME 9.3 fl (7.5-11.1); MONO % 4.8 % (3.8-10.2); NEUT % 80.7 % (42.8-82.8); PLATELET COUNT 156 K/MM3 (134-434); RBC 4.96 M/mm3 (4.00-5.60); RDW 16.2 % (11.9-15.9); WHITE BLOOD COUNT 7.4 K/mm3 (4.0-10.0)
[2020-02-09 12:56] LABS: URINE APPEARANCE CLEAR; URINE BILIRUBIN NEGATIVE (NEGATIVE); URINE COLOR YELLOW; URINE GLUCOSE (UA) NEGATIVE (NEGATIVE); URINE KETONE TRACE (NEGATIVE); URINE LEUK ESTERASE NEGATIVE (NEGATIVE); URINE NITRITE NEGATIVE (NEGATIVE); URINE PROTEIN NEGATIVE (NEGATIVE)
[2020-02-09] MEDS ORDERED: ACETAMINOPHEN INJECTION 100 ML IVPB ONE (13:00)
[2020-02-09 13:02] LABS: INR 1.06 (0.83-1.09); PROTHROMBIN TIME (PATIENT) 12.8 SEC (9.7-13.0)
[2020-02-09 13:04] LABS: ACTIVATED PTT 29.4 SECONDS (25.2-36.5)
[2020-02-09 13:23] LABS: POTASSIUM 4.4 mmol/L (3.5-5.1)
[2020-02-09 13:26] LABS: ALBUMIN 3.2 g/dl (3.4-5.0); BLOOD UREA NITROGEN 47.1 mg/dL (7-18); CALCIUM 8.6 mg/dL (8.5-10.1)
[2020-02-09 13:29] LABS: CREATININE 1.6 mg/dL (0.55-1.3)
[2020-02-09 13:32] LABS: BILIRUBIN,TOTAL 1.1 mg/dL (0.2-1)
[2020-02-09] MEDS ORDERED: VANCOMYCIN 1 GM in D5W (PRE-DOCKED) 1,000 MG/250 ML IVPB SCH (14:00)
[2020-02-09] MEDS ORDERED: PIPERACILLIN/TAZOB 3.375 GM 3.375 GM in DEXTROSE 5%-WATER - 50 ML IVPB SCH ×2 (14:00→18:00)
[2020-02-09] MEDS ORDERED: VANCOMYCIN 1,000 MG in DEXTROSE 5%-WATER - 250 ML IVPB ONE (14:26)
[2020-02-09] MEDS ORDERED: PIPERACILLIN/TAZOB 4.5 GM 4.5 GM in DEXTROSE 5%-WATER 100 ML IVPB ONE (14:26)
[2020-02-09] MEDS ORDERED: PIPERACILLIN/TAZOB 3.375 GM 3.375 GM/50 ML BAG IVPB ONE ×2 (14:27→17:38)
[2020-02-09] MEDS ORDERED: VANCOMYCIN 1 GRAM (PRE-DOCKED) 1,000 MG/250 ML BAG IVPB ONE (14:27)
[2020-02-09 14:51] VITALS: BMI 23.6
[2020-02-09] MEDS ORDERED: KCL 10 MEQ IVPB 10 MEQ/100 ML INFUS.BAG IVPB ONE (17:38)
[2020-02-09] MEDS: PIPERACILLIN/TAZOB 3.375 GM 3.375 GM in DEXTROSE 5%-WATER - 50 ML IVPB SCH (17:55)
[2020-02-09] MEDS: POTASSIUM CHLORIDE 10 MEQ in SODIUM CHLORIDE 0.45% 1,000 ML IVPB SCH (17:55)
[2020-02-09 18:28] LABS: INR 1.15 (0.83-1.09); PROTHROMBIN TIME (PATIENT) 13.8 SEC (9.7-13.0)
[2020-02-09 18:33] LABS: TRIGLYCERIDES 63 mg/dL (0-150)
[2020-02-09 18:34] LABS: CHOLESTEROL 89 mg/dL (50-200); LDL CHOLESTEROL (ONLY SJRH) 27 mg/dL (5-100)
[2020-02-09 18:36] LABS: HDL CHOLESTEROL 57 mg/dL (40-60)
[2020-02-09 19:24] LABS: ARTERIAL BLD GAS O2 SATURATION 97.4 mmHg (95-98); ARTERIAL BLOOD GAS BASE EXCESS -3.4 mmol/L (-2-2); ARTERIAL BLOOD GAS PO2 95.4 mmHg (80-100); ARTERIAL BLOOD GAS pH 7.411 (7.350-7.450)
[2020-02-09 19:25] LABS: ALLENS TEST POSITIVE
[2020-02-09] MEDS ORDERED: DOCUSATE SODIUM 100 MG CAPSULE (FP) PO ONE (22:39)
[2020-02-09] MEDS ORDERED: ATORVASTATIN CA 40 MG TABLET (FP) ONE (22:39)
[2020-02-09] MEDS ORDERED: SENNOSIDES 8.6MG TABLET (FP) PO ONE (22:39)
[2020-02-09] MEDS ORDERED: HEPARIN NA (PORCINE) 5,000 UNITS/ML 1ML VIAL ONE (22:40)
[2020-02-09] MEDS: ATORVASTATIN CA 40 MG TABLET (FP) PO SCH (23:21)
[2020-02-09] MEDS: SENNOSIDES 8.6MG TABLET (FP) PO SCH (23:21)
[2020-02-09] MEDS: HEPARIN NA (PORCINE) 5,000 UNITS/ML 1ML VIAL SQ SCH (23:21)
[2020-02-09] MEDS: BENZTROPINE MESYLATE 0.5 MG TABLET (FP) PO SCH (23:21)
[2020-02-09] MEDS: DOCUSATE SODIUM 100 MG CAPSULE (FP) PO SCH (23:21)
[2020-02-10] MEDS ORDERED: PIPERACILLIN/TAZOB 3.375 GM 3.375 GM/50 ML BAG IVPB ONE ×2 (01:14→09:37)
[2020-02-10] MEDS: PIPERACILLIN/TAZOB 3.375 GM 3.375 GM in DEXTROSE 5%-WATER - 50 ML IVPB SCH ×2 (02:26→11:00)
[2020-02-10 05:33] LABS: BASO % 0.3 % (0-2.0); EOS % 2.8 % (0-4.5); HEMATOCRIT 35.9 % (35.4-49); HEMOGLOBIN 11.8 GM/dL (11.7-16.9); LYMPH % 16.8 % (8-40); MCH 30.2 pg (25.7-33.7); MCHC 32.8 g/dl (32.0-35.9); MEAN CELL VOLUME 92.1 fl (80-96); MONO % 7.3 % (3.8-10.2); NEUT % 72.8 % (42.8-82.8); PLATELET COUNT 142 K/MM3 (134-434); RDW 15.8 % (11.9-15.9); WHITE BLOOD COUNT 5.5 K/mm3 (4.0-10.0)
[2020-02-10 05:52] LABS: POTASSIUM 4.8 mmol/L (3.5-5.1)
[2020-02-10 05:54] LABS: CALCIUM 7.9 mg/dL (8.5-10.1)
[2020-02-10 05:55] LABS: BLOOD UREA NITROGEN 39.7 mg/dL (7-18)
[2020-02-10 05:58] LABS: CREATININE 1.4 mg/dL (0.55-1.3); PHOSPHOROUS 3.2 mg/dL (2.5-4.9)
[2020-02-10 05:59] LABS: BILIRUBIN,TOTAL 1.1 mg/dL (0.2-1); TOT PROT 5.5 g/dl (6.4-8.2)
[2020-02-10] MEDS: POTASSIUM CHLORIDE 10 MEQ in SODIUM CHLORIDE 0.45% 1,000 ML IVPB SCH ×2 (07:15→20:23)
[2020-02-10] MEDS: HEPARIN NA (PORCINE) 5,000 UNITS/ML 1ML VIAL SQ SCH ×2 (09:30→22:04)
[2020-02-10] MEDS: SENNOSIDES 8.6MG TABLET (FP) PO SCH ×2 (09:30→22:04)
[2020-02-10] MEDS: BENZTROPINE MESYLATE 0.5 MG TABLET (FP) PO SCH (09:30)
[2020-02-10] MEDS: TAMSULOSIN HCL 0.4 MG CAP PO SCH (09:30)
[2020-02-10] MEDS ORDERED: TAMSULOSIN HCL 0.4 MG CAP ONE (09:36)
[2020-02-10] MEDS ORDERED: SENNOSIDES 8.6MG TABLET (FP) PO ONE (09:36)
[2020-02-10] MEDS ORDERED: HEPARIN NA (PORCINE) 5,000 UNITS/ML 1ML VIAL ONE (09:36)
[2020-02-10] MEDS ORDERED: RASAGILINE MESYLATE 1 MG PO SCH (10:00)
[2020-02-10] MEDS ORDERED: VANCOMYCIN 1 GRAM (PRE-DOCKED) 1,000 MG/250 ML BAG IVPB ONE (14:37)
[2020-02-10] MEDS: VANCOMYCIN 1 GRAM (PRE-DOCKED) 1,000 MG/250 ML BAG IVPB SCH (14:57)
[2020-02-10] MEDS: DOCUSATE SODIUM 100 MG CAPSULE (FP) PO SCH (22:04)
[2020-02-10] MEDS: ATORVASTATIN CA 40 MG TABLET (FP) PO SCH (22:04)
[2020-02-11] MEDS: POTASSIUM CHLORIDE 10 MEQ in SODIUM CHLORIDE 0.45% 1,000 ML IVPB SCH ×2 (02:15→21:22)
[2020-02-11 06:58] LABS: BASO % 0.3 % (0-2.0); EOS % 1.7 % (0-4.5); HEMATOCRIT 35.8 % (35.4-49); HEMOGLOBIN 11.9 GM/dL (11.7-16.9); LYMPH % 11.1 % (8-40); MCH 30.4 pg (25.7-33.7); MCHC 33.3 g/dl (32.0-35.9); MEAN CELL VOLUME 91.3 fl (80-96); MEAN PLT VOLUME 9.2 fl (7.5-11.1); NEUT % 79.9 % (42.8-82.8); PLATELET COUNT 160 K/MM3 (134-434); RBC 3.92 M/mm3 (4.00-5.60); RDW 15.5 % (11.9-15.9); WHITE BLOOD COUNT 6.5 K/mm3 (4.0-10.0)
[2020-02-11 07:26] LABS: POTASSIUM 4.7 mmol/L (3.5-5.1)
[2020-02-11 07:34] LABS: ALBUMIN 3.2 g/dl (3.4-5.0); CALCIUM 8.3 mg/dL (8.5-10.1)
[2020-02-11 07:35] LABS: BLOOD UREA NITROGEN 30.9 mg/dL (7-18)
[2020-02-11 07:39] LABS: BILIRUBIN,TOTAL 1.4 mg/dL (0.2-1)
[2020-02-11] MEDS: HEPARIN NA (PORCINE) 5,000 UNITS/ML 1ML VIAL SQ SCH ×2 (11:09→21:21)
[2020-02-11] MEDS: TAMSULOSIN HCL 0.4 MG CAP PO SCH (11:09)
[2020-02-11] MEDS: SENNOSIDES 8.6MG TABLET (FP) PO SCH ×2 (11:09→21:21)
[2020-02-11] MEDS: VANCOMYCIN 1 GRAM (PRE-DOCKED) 1,000 MG/250 ML BAG IVPB SCH (13:15)
[2020-02-11] MEDS: QUEtiapine FUMARATE 25 MG TABLET PO PRN (13:15)
[2020-02-11] MEDS: ATORVASTATIN CA 40 MG TABLET (FP) PO SCH (21:21)
[2020-02-11] MEDS: DOCUSATE SODIUM 100 MG CAPSULE (FP) PO SCH (21:21)
[2020-02-12 07:14] LABS: HEMATOCRIT 33.8 % (35.4-49); MCHC 32.5 g/dl (32.0-35.9); MEAN CELL VOLUME 92.4 fl (80-96); MEAN PLT VOLUME 8.8 fl (7.5-11.1); PLATELET COUNT 152 K/MM3 (134-434); RBC 3.66 M/mm3 (4.00-5.60); RDW 15.6 % (11.9-15.9); WHITE BLOOD COUNT 4.8 K/mm3 (4.0-10.0)
[2020-02-12 07:39] LABS: POTASSIUM 4.6 mmol/L (3.5-5.1)
[2020-02-12 07:44] LABS: BLOOD UREA NITROGEN 25.2 mg/dL (7-18)
[2020-02-12 07:46] LABS: CALCIUM 8.5 mg/dL (8.5-10.1)
[2020-02-12 07:47] LABS: CREATININE 1.5 mg/dL (0.55-1.3); MAGNESIUM 1.5 mg/dL (1.8-2.4)
[2020-02-12 07:49] LABS: BILIRUBIN,TOTAL 1.4 mg/dL (0.2-1); TOT PROT 5.6 g/dl (6.4-8.2)
[2020-02-12] MEDS: HEPARIN NA (PORCINE) 5,000 UNITS/ML 1ML VIAL SQ SCH ×2 (10:16→21:53)
[2020-02-12] MEDS: CEFAZOLIN 2 GM/D5W 2 GM/50 ML ML IVPB SCH ×2 (10:22→17:12)
[2020-02-12] MEDS: TAMSULOSIN HCL 0.4 MG CAP PO SCH (11:31)
[2020-02-12] MEDS: SENNOSIDES 8.6MG TABLET (FP) PO SCH ×2 (11:32→21:52)
[2020-02-12] MEDS: POTASSIUM CHLORIDE 10 MEQ in SODIUM CHLORIDE 0.45% 1,000 ML IVPB SCH (11:33)
[2020-02-12] MEDS: amLODIPine BESYLATE 5 MG TABLET (FP) PO SCH (17:32)
[2020-02-12] MEDS ORDERED: PT OWN MED DRAWER 7, Y5N ONE (19:05)
[2020-02-12] MEDS: DOCUSATE SODIUM 100 MG CAPSULE (FP) PO SCH (21:53)
[2020-02-12] MEDS: ATORVASTATIN CA 40 MG TABLET (FP) PO SCH (21:53)
[2020-02-12] MEDS: QUEtiapine FUMARATE 25 MG TABLET PO PRN (21:53)
[2020-02-13] MEDS: POTASSIUM CHLORIDE 10 MEQ in SODIUM CHLORIDE 0.45% 1,000 ML IVPB SCH ×2 (00:15→17:20)
[2020-02-13] MEDS: CEFAZOLIN 2 GM/D5W 2 GM/50 ML ML IVPB SCH ×3 (02:15→17:20)
[2020-02-13 07:29] LABS: POTASSIUM 4.8 mmol/L (3.5-5.1)
[2020-02-13 07:34] LABS: BLOOD UREA NITROGEN 19.3 mg/dL (7-18); CALCIUM 8.6 mg/dL (8.5-10.1)
[2020-02-13 07:37] LABS: CREATININE 1.4 mg/dL (0.55-1.3)
[2020-02-13] MEDS: amLODIPine BESYLATE 5 MG TABLET (FP) PO SCH (10:35)
[2020-02-13] MEDS: SENNOSIDES 8.6MG TABLET (FP) PO SCH ×2 (10:35→21:40)
[2020-02-13] MEDS: TAMSULOSIN HCL 0.4 MG CAP PO SCH (10:35)
[2020-02-13] MEDS: HEPARIN NA (PORCINE) 5,000 UNITS/ML 1ML VIAL SQ SCH ×2 (10:35→21:40)
[2020-02-13] MEDS: DOCUSATE SODIUM 100 MG CAPSULE (FP) PO SCH (21:39)
[2020-02-13] MEDS: QUEtiapine FUMARATE 25 MG TABLET PO PRN (21:39)
[2020-02-13] MEDS: ATORVASTATIN CA 40 MG TABLET (FP) PO SCH (21:40)
[2020-02-14] MEDS: CEFAZOLIN 2 GM/D5W 2 GM/50 ML ML IVPB SCH ×3 (01:15→17:37)
[2020-02-14] MEDS: POTASSIUM CHLORIDE 10 MEQ in SODIUM CHLORIDE 0.45% 1,000 ML IVPB SCH ×3 (06:45→14:28)
[2020-02-14 07:27] LABS: BASO % 0.2 % (0-2.0); EOS % 3.8 % (0-4.5); HEMOGLOBIN 11.7 GM/dL (11.7-16.9); MCH 29.9 pg (25.7-33.7); MCHC 32.4 g/dl (32.0-35.9); MEAN CELL VOLUME 92.3 fl (80-96); MEAN PLT VOLUME 8.3 fl (7.5-11.1); MONO % 9.5 % (3.8-10.2); NEUT % 69.5 % (42.8-82.8); PLATELET COUNT 156 K/MM3 (134-434); RDW 15.6 % (11.9-15.9); WHITE BLOOD COUNT 6.3 K/mm3 (4.0-10.0)
[2020-02-14 07:42] LABS: POTASSIUM 4.2 mmol/L (3.5-5.1)
[2020-02-14 07:43] LABS: CALCIUM 8.2 mg/dL (8.5-10.1)
[2020-02-14 07:44] LABS: ALBUMIN 2.6 g/dl (3.4-5.0); BLOOD UREA NITROGEN 20.8 mg/dL (7-18)
[2020-02-14 07:47] LABS: CREATININE 1.4 mg/dL (0.55-1.3)
[2020-02-14 07:49] LABS: BILIRUBIN,TOTAL 1.2 mg/dL (0.2-1); TOT PROT 5.4 g/dl (6.4-8.2)
[2020-02-14] MEDS: TAMSULOSIN HCL 0.4 MG CAP PO SCH (09:29)
[2020-02-14] MEDS: amLODIPine BESYLATE 5 MG TABLET (FP) PO SCH (09:29)
[2020-02-14] MEDS: SENNOSIDES 8.6MG TABLET (FP) PO SCH ×2 (09:30→21:35)
[2020-02-14] MEDS: HEPARIN NA (PORCINE) 5,000 UNITS/ML 1ML VIAL SQ SCH ×2 (09:30→21:35)
[2020-02-14] MEDS: ATORVASTATIN CA 40 MG TABLET (FP) PO SCH (21:34)
[2020-02-14] MEDS: DOCUSATE SODIUM 100 MG CAPSULE (FP) PO SCH (21:34)
[2020-02-15] MEDS: CEFAZOLIN 2 GM/D5W 2 GM/50 ML ML IVPB SCH ×3 (02:00→17:33)
[2020-02-15 07:21] LABS: BASO % 0.3 % (0-2.0); EOS % 2.2 % (0-4.5); HEMATOCRIT 36.9 % (35.4-49); HEMOGLOBIN 12.1 GM/dL (11.7-16.9); MCH 30.1 pg (25.7-33.7); MCHC 32.7 g/dl (32.0-35.9); MEAN PLT VOLUME 8.3 fl (7.5-11.1); MONO % 10.1 % (3.8-10.2); NEUT % 75.4 % (42.8-82.8); PLATELET COUNT 171 K/MM3 (134-434); RBC 4.02 M/mm3 (4.00-5.60); RDW 15.4 % (11.9-15.9); WHITE BLOOD COUNT 6.7 K/mm3 (4.0-10.0)
[2020-02-15 07:34] LABS: POTASSIUM 4.4 mmol/L (3.5-5.1)
[2020-02-15 07:47] LABS: CALCIUM 8.4 mg/dL (8.5-10.1)
[2020-02-15 07:48] LABS: ALBUMIN 2.7 g/dl (3.4-5.0); BLOOD UREA NITROGEN 20.2 mg/dL (7-18)
[2020-02-15 07:51] LABS: CREATININE 1.3 mg/dL (0.55-1.3)
[2020-02-15 07:52] LABS: BILIRUBIN,TOTAL 1.3 mg/dL (0.2-1)
[2020-02-15 07:53] LABS: TOT PROT 5.7 g/dl (6.4-8.2)
[2020-02-15] MEDS ORDERED: PT OWN MED DRAWER 7, Y5N ONE ×2 (09:37→09:46)
[2020-02-15] MEDS: TAMSULOSIN HCL 0.4 MG CAP PO SCH (09:40)
[2020-02-15] MEDS: amLODIPine BESYLATE 5 MG TABLET (FP) PO SCH (09:40)
[2020-02-15] MEDS: SENNOSIDES 8.6MG TABLET (FP) PO SCH ×2 (09:40→21:21)
[2020-02-15] MEDS: HEPARIN NA (PORCINE) 5,000 UNITS/ML 1ML VIAL SQ SCH ×2 (09:40→21:19)
[2020-02-15] MEDS: POTASSIUM CHLORIDE 10 MEQ in SODIUM CHLORIDE 0.45% 1,000 ML IVPB SCH (10:10)
[2020-02-15] MEDS: DOCUSATE SODIUM 100 MG CAPSULE (FP) PO SCH (21:19)
[2020-02-15] MEDS: ATORVASTATIN CA 40 MG TABLET (FP) PO SCH (21:20)
[2020-02-16] MEDS: CEFAZOLIN 2 GM/D5W 2 GM/50 ML ML IVPB SCH ×3 (01:28→17:17)
[2020-02-16 07:15] LABS: BASO % 0.4 % (0-2.0); EOS % 2.9 % (0-4.5); HEMATOCRIT 36.6 % (35.4-49); LYMPH % 16.2 % (8-40); MCH 30.4 pg (25.7-33.7); MCHC 32.6 g/dl (32.0-35.9); MEAN PLT VOLUME 8.2 fl (7.5-11.1); MONO % 9.3 % (3.8-10.2); NEUT % 71.2 % (42.8-82.8); PLATELET COUNT 159 K/MM3 (134-434); RBC 3.94 M/mm3 (4.00-5.60); RDW 15.7 % (11.9-15.9); WHITE BLOOD COUNT 6.3 K/mm3 (4.0-10.0)
[2020-02-16 07:26] LABS: POTASSIUM 4.3 mmol/L (3.5-5.1)
[2020-02-16 07:33] LABS: BLOOD UREA NITROGEN 24.2 mg/dL (7-18); CREATININE 1.3 mg/dL (0.55-1.3)
[2020-02-16 07:34] LABS: ALBUMIN 2.6 g/dl (3.4-5.0); CALCIUM 8.1 mg/dL (8.5-10.1)
[2020-02-16 07:35] LABS: BILIRUBIN,TOTAL 1.2 mg/dL (0.2-1); TOT PROT 5.6 g/dl (6.4-8.2)
[2020-02-16] MEDS: SENNOSIDES 8.6MG TABLET (FP) PO SCH ×2 (09:56→21:44)
[2020-02-16] MEDS: TAMSULOSIN HCL 0.4 MG CAP PO SCH (09:56)
[2020-02-16] MEDS: HEPARIN NA (PORCINE) 5,000 UNITS/ML 1ML VIAL SQ SCH ×2 (09:56→22:08)
[2020-02-16] MEDS: amLODIPine BESYLATE 5 MG TABLET (FP) PO SCH (09:56)
[2020-02-16] MEDS: ATORVASTATIN CA 40 MG TABLET (FP) PO SCH (21:43)
[2020-02-16] MEDS: DOCUSATE SODIUM 100 MG CAPSULE (FP) PO SCH (21:43)
[2020-02-17] MEDS: CEFAZOLIN 2 GM/D5W 2 GM/50 ML ML IVPB SCH ×2 (01:16→09:12)
[2020-02-17 06:23] VITALS: PULSE 74
[2020-02-17 08:07] LABS: POTASSIUM 4.3 mmol/L (3.5-5.1)
[2020-02-17 08:24] LABS: BLOOD UREA NITROGEN 31.8 mg/dL (7-18)
[2020-02-17 08:25] LABS: CALCIUM 8.8 mg/dL (8.5-10.1)
[2020-02-17 08:29] LABS: CREATININE 1.3 mg/dL (0.55-1.3)
[2020-02-17] MEDS: SENNOSIDES 8.6MG TABLET (FP) PO SCH (09:12)
[2020-02-17] MEDS: HEPARIN NA (PORCINE) 5,000 UNITS/ML 1ML VIAL SQ SCH (09:12)
[2020-02-17] MEDS: TAMSULOSIN HCL 0.4 MG CAP PO SCH (09:12)
[2020-02-17 10:40] VITALS: BP 146/73; TEMP 98.3
[2020-02-17] MEDS: amLODIPine BESYLATE 5 MG TABLET (FP) PO SCH (11:17)
[2020-02-17] MEDS ORDERED: PT OWN MED DRAWER 7, Y5N ONE (15:17)
== END 2020-02-17 17:36 | disposition home health service (06) | DRG 871 ==
LOC: JER 11:28 → JERBED 14:12 → J4W 02-10 16:49
PROVIDERS: ADMIT Family Medicine; ATTEND Family Medicine
PROC: 02HV33Z Insertion of Infusion Device into Superior Vena Cava, Percutaneous Approach (ICD-10-PCS; principal; 2020-02-17)
DX: A41.2 Sepsis due to unspecified staphylococcus (principal); J18.9 Pneumonia, unspecified organism; G92 Toxic encephalopathy; N17.9 Acute kidney failure, unspecified; E87.2 Acidosis; G20 Parkinson's disease; E78.5 Hyperlipidemia, unspecified; N40.0 Benign prostatic hyperplasia without lower urinary tract symptoms; I95.9 Hypotension, unspecified; R33.9 Retention of urine, unspecified; E11.9 Type 2 diabetes mellitus without complications
CPT/HCPCS: 36415; 36569; 36600; 70450-TC; 71045-TC-FY; 72125-TC; 76775-TC; 76856-TC; 77001-TC-FY; 80048; 80053; 80061; 81003; 82533; 82550; 82553; 82565; 82607; 82803; 82962; 83605; 83721; 83735; 84100; 84156; 84300; 84436; 84439; 84443; 84484; 85025; 85027; 85610; 85651; 85730; 86140; 86850; 86900; 86901; 87040; 87086; 87186; 87205; 87899; 93005; 93010; 93306-TC; 99285-25; C1751; C9803; G0480; J0131; J1644; U0003